=== PATIENT | male | born 1965 | race Caucasian/White ===

== ENCOUNTER 2020-06-21 23:21 | Inpatient (IN) | payer BC ==
[2020-06-22 00:58] LABS: Troponin I 0.014 ng/mL (< 0.028)
[2020-06-22] MEDS ORDERED: Acetaminophen 650 MG Suppository PR PRN (03:01)
[2020-06-22] MEDS ORDERED: Acetaminophen 325 MG TAB PO PRN (03:01)
[2020-06-22] MEDS ORDERED: Nitroglycerin 2% Ointment 1 INCH/1 GM Packet ONE (05:53)
[2020-06-22 06:01] LABS: #Basophils 0.1 thou/uL (0.0-0.2); #Eosinphils 0.2 thou/uL (0.0-0.7); #Lymphocytes 2.5 thou/uL (1.20-3.40); #Monocytes 0.8 thou/uL (0.11-0.59); #Neutrophils 5.3 thou/uL (1.40-6.50); %Basophils 0.7 % (0.0-1.0); %Eosinophils 2.3 % (0.0-10.0); %Lymphocytes 28.2 % (21.0-51.0); %Monocytes 9.4 % (0.0-10.0); %Neutrophils 59.4 % (42.0-75.0); Hemoglobin 14.2 g/dL (14.0-18.0); Mean Corpuscular HGB CONC 32.8 g/dL (32.0-36.0); Mean Corpuscular Hemoglobin 32.2 pg (27.0-31.0); Mean Corpuscular Volume 97.9 fL (78.0-98.0); Mean Platelet Volume 7.6 fL (7.4-10.4); Platelet Count 212 thou/uL (130-400); RBC Distribution Width 11.8 % (11.5-14.5); Red Blood Cell (RBC) Count 4.43 mill/uL (4.70-6.10)
[2020-06-22] MEDS: Sodium Chloride 0.9% 1,000 ML IV SCH ×2 (06:10→17:16)
[2020-06-22] MEDS: Nitroglycerin 2% Ointment 1 INCH/1 GM Packet TOP SCH ×3 (06:10→21:41)
[2020-06-22 06:22] LABS: Anion Gap 12 mmol/L (10-20); BUN (Urea Nitrogen) 12 mg/dL (8.4-25.7); Calc. Creatinine Clearance 0 mL/min (70-130); Carbon Dioxide 22 mmol/L (22-29); Chloride 108 mmol/L (98-107); Glucose 93 mg/dL (70-105); Potassium 4.1 mmol/L (3.5-5.1); Sodium 138 mmol/L (136-145)
[2020-06-22 08:35] LABS: SARS-CoV-2 PCR by NAA Not Detected (NotDetected)
[2020-06-22] MEDS ORDERED: Aspirin 325 MG TAB ONE (09:24)
[2020-06-22] MEDS: Aspirin 325 mg Enteric Coated Tablet PO SCH (09:27)
[2020-06-22] MEDS ORDERED: Communication Order-Pharmacy FS SCH (13:00)
[2020-06-23] MEDS ORDERED: Albumin 5% 500 ML ONE (06:21)
[2020-06-23] MEDS ORDERED: Fentanyl 250 MCG/5 ML VIAL ONE (06:43)
[2020-06-23] MEDS ORDERED: Midazolam HCl 5 mg/5 ml Vial ONE (06:44)
[2020-06-23] MEDS ORDERED: Dexmedetomidine 200 MCG/2 ML VIAL ONE (06:44)
[2020-06-23] MEDS ORDERED: Ondansetron ODT 4 MG TAB ONE (07:12)
[2020-06-23] MEDS ORDERED: Midazolam HCl 2 mg/2 ml Vial ONE (07:12)
[2020-06-23] MEDS ORDERED: CEFAZOLIN 2 GM in Premix Bag 1 BAG IVPB SCH (07:15)
[2020-06-23] MEDS ORDERED: Sodium Bicarb 50 MEQ/50 ML Abboject 8.4% SYRINGE ONE (07:20)
[2020-06-23] MEDS ORDERED: Mannitol 12.5 GM/50 ML ONE (07:20)
[2020-06-23] MEDS ORDERED: Lidocaine 1% PF 5 ML VIAL ONE (07:20)
[2020-06-23] MEDS ORDERED: Thrombin 5000 UNITS/5 ML VIAL ONE (07:20)
[2020-06-23] MEDS ORDERED: Potassium Chloride 60 MEQ/30 ML VIAL ONE (07:20)
[2020-06-23] MEDS ORDERED: Ondansetron PF 4 MG/2 ML Vial ONE (07:20)
[2020-06-23] MEDS ORDERED: Vecuronium 10 MG VIAL ONE (07:20)
[2020-06-23] MEDS ORDERED: Calcium Chloride 1 GM/10 ML Abboject SYRINGE ONE (07:20)
[2020-06-23] MEDS ORDERED: Heparin 30,000 units/30 ml VIAL ONE (07:20)
[2020-06-23] MEDS ORDERED: Glycopyrrolate 0.2 MG/ML 5 ML SYRINGE ONE (07:20)
[2020-06-23] MEDS ORDERED: Heparin 5,000 UNITS/ML VIAL ONE (07:20)
[2020-06-23] MEDS ORDERED: Protamine Sulfate 250 MG/25 ML VIAL ONE (07:20)
[2020-06-23] MEDS ORDERED: Papaverine 60 MG/2 ML VIAL ONE ×2 (07:20→08:12)
[2020-06-23] MEDS ORDERED: Cardioplegic Soln 1,000 ML BAG ONE (07:20)
[2020-06-23] MEDS ORDERED: Aminocaproic Acid 5 GM/20 ML VIAL ONE (07:20)
[2020-06-23] MEDS ORDERED: PROPOFOL 200 MG/20 ML VIAL ONE (07:20)
[2020-06-23] MEDS ORDERED: Nitroglycerin 50 MG/250 ML BOT ONE (07:20)
[2020-06-23] MEDS ORDERED: Norepinephrine 4 MG/4 ML VIAL ONE (07:20)
[2020-06-23] MEDS ORDERED: Lidocaine 2% PF 100 mg/5 ml Syringe ONE (07:20)
[2020-06-23] MEDS ORDERED: Magnesium Sulfate 1 GM/2 ML VIAL ONE (07:20)
[2020-06-23] MEDS ORDERED: PHENYLEPHRINE-NS 100 MCG/ML 10 ML SYRINGE ONE (08:44)
[2020-06-23] MEDS ORDERED: Mag-Al 1200 mg/1200 mg/30 ML UDCUP PO PRN (13:06)
[2020-06-23] MEDS ORDERED: Sodium Chloride 0.9% 1,000 ML IV SCH (13:06)
[2020-06-23] MEDS ORDERED: Bisacodyl 5 MG TAB PO PRN (13:06)
[2020-06-23] MEDS ORDERED: Nitroglycerin 50 MG/250 ML BOT 250 ML IVPB PRN (13:06)
[2020-06-23] MEDS ORDERED: Acetaminophen 325 MG TAB PO PRN (13:06)
[2020-06-23] MEDS ORDERED: Hetastarch 6% 500 ML 500 ML IVPB PRN (13:06)
[2020-06-23] MEDS ORDERED: niCARdipine 25 MG in Sodium Chloride 0.9% 250 ML 250 ML IVPB PRN (13:06)
[2020-06-23] MEDS ORDERED: Bisacodyl 10 MG SUPP PR PRN (13:06)
[2020-06-23] MEDS ORDERED: hydrALAZINE 20 MG/ML VIAL SLOW IVP PRN (13:06)
[2020-06-23] MEDS ORDERED: Morphine 2 MG/ML VIAL SLOW IVP PRN (13:06)
[2020-06-23] MEDS ORDERED: Aspirin 325 MG TAB PO SCH ×2 (13:06→21:30)
[2020-06-23] MEDS ORDERED: Ondansetron PF 4 MG/2 ML Vial IVP PRN (13:06)
[2020-06-23] MEDS ORDERED: Potassium Chloride 20 MEQ/100 ML PREMIX BAG IVPB PRN (13:06)
[2020-06-23] MEDS ORDERED: Guaifenesin DM 100-10/5 ML UDCUP PO PRN (13:06)
[2020-06-23] MEDS ORDERED: HYDROcodone/Acetaminophen 5/325 mg Tablet PO PRN (13:06)
[2020-06-23] MEDS ORDERED: Fentanyl 100 MCG/2 ML VIAL SLOW IVP PRN (13:06)
[2020-06-23] MEDS ORDERED: Post-Op Insulin Drip Protocol IVPB ONE (13:06)
[2020-06-23] MEDS ORDERED: Norepinephrine 8 MG/0.9% NS 250 ML IVPB PRN (13:06)
[2020-06-23 13:25] LABS: Hemoglobin 13.5 g/dL (14.0-18.0); Mean Corpuscular HGB CONC 33.9 g/dL (32.0-36.0); Mean Corpuscular Hemoglobin 33.2 pg (27.0-31.0); Mean Corpuscular Volume 97.9 fL (78.0-98.0); Mean Platelet Volume 7.6 fL (7.4-10.4); Platelet Count 140 thou/uL (130-400); RBC Distribution Width 11.6 % (11.5-14.5); Red Blood Cell (RBC) Count 4.07 mill/uL (4.70-6.10); White Blood Cell (WBC) Count 26.7 thou/uL (4.8-10.8)
[2020-06-23] MEDS ORDERED: Ketorolac Tromethamine 30 MG/ML VIAL ONE (13:25)
[2020-06-23] MEDS ORDERED: HUMULIN R 100 UNITS in Sodium Chloride 0.9% 100 ML IVPB SCH (13:30)
[2020-06-23] MEDS ORDERED: Dextrose 50% Abboject 50 ML SYRINGE SLOW IVP PRN (13:30)
[2020-06-23] MEDS ORDERED: Dextrose 5% in Water 1,000 ML IV PRN (13:30)
[2020-06-23] MEDS ORDERED: Insulin Regular 300 UNITS/3 ML VIAL SC PRN (13:30)
[2020-06-23 13:31] LABS: Hemoglobin A1c 5.5 % (4.0-6.0)
[2020-06-23 13:32] LABS: INR-International Normal Ratio 1.1; PTT 34.4 sec (22.9-36.1); Prothrombin Time 14.8 sec (12.0-14.7)
[2020-06-23 13:37] LABS: Base Excess (BEa) -4.2 mEq/L (-2.0 to +3.0); CO2 Tension 34.2 mmHg (35.0-45.0); Calcium, Ionized (arterial) 1.11 mmol/L (1.12-1.30); Carboxyhemoglobin (COHb) 0.4 gm% (0.0-3.0); Hemoglobin (Hb) 13.7 g/dL (14.0-18.0); Potassium - ABG Lab 3.83 mmol/L (3.70-5.30); pH, Arterial 7.39 (7.35-7.45)
[2020-06-23 13:38] LABS: O2 Tension (PaO2), arterial 52.7 mmHg (80.0-100.0); Puncture Site Arterial Line
[2020-06-23] MEDS: Famotidine/PF 20 mg/2ml Vial SLOW IVP SCH ×2 (13:42→20:33)
[2020-06-23] MEDS: Ketorolac Tromethamine 30 MG/ML VIAL IVP SCH ×2 (13:42→17:02)
[2020-06-23 13:46] LABS: Band 15 % (5-11); Lymphocytes 3 % (21-51); MDiff Complete? YES; Metamyelocyte 1 % (0-0); Monocytes 6 % (0-10); Neutrophil 75 % (42-75); Platelet Morphology Comment Appears Adequate; RBC Morphology Normal
[2020-06-23] MEDS: Sodium Chloride 0.9% 1,000 ML IV SCH (13:48)
[2020-06-23] MEDS: Nitroglycerin 2% Ointment 1 INCH/1 GM Packet TOP SCH (13:48)
[2020-06-23] MEDS: Aspirin 325 mg Enteric Coated Tablet PO SCH (13:48)
[2020-06-23 14:14] LABS: Anion Gap 12 mmol/L (10-20); BUN (Urea Nitrogen) 10 mg/dL (8.4-25.7); Calc. Creatinine Clearance 90 mL/min (70-130); Calcium 7.7 mg/dL (7.8-10.44); Carbon Dioxide 22 mmol/L (22-29); Chloride 111 mmol/L (98-107); Glucose 144 mg/dL (70-105); Potassium 4.3 mmol/L (3.5-5.1); Sodium 141 mmol/L (136-145)
[2020-06-23] MEDS ORDERED: FLU VACC QS2020-21(6MOS UP)/PF 60 MCG/0.5 ML SYRINGE IM ONE (15:00)
[2020-06-23 17:33] LABS: Hemoglobin 12.8 g/dL (14.0-18.0)
[2020-06-23 17:53] LABS: Potassium 3.8 mmol/L (3.5-5.1)
[2020-06-23 19:26] LABS: Actual Bicarbonate (HCO3a) 21.6 mEq/L (22-28); Base Excess (BEa) -1.8 mEq/L (-2.0 to +3.0); CO2 Tension 32.6 mmHg (35.0-45.0); Calcium, Ionized (arterial) 1.07 mmol/L (1.12-1.30); Carboxyhemoglobin (COHb) 0.3 gm% (0.0-3.0); Hemoglobin (Hb) 12.9 g/dL (14.0-18.0); O2 Tension (PaO2), arterial 73.7 mmHg (80.0-100.0); Potassium - ABG Lab 4.02 mmol/L (3.70-5.30); pH, Arterial 7.44 (7.35-7.45)
[2020-06-23 19:32] LABS: Puncture Site Arterial Line
[2020-06-23] MEDS: Fentanyl 100 MCG/2 ML VIAL SLOW IVP PRN ×2 (20:33→23:00)
[2020-06-23] MEDS: Docusate 100 MG CAP PO SCH (20:47)
[2020-06-23] MEDS: Atorvastatin Calcium 40 MG TAB PO SCH (20:47)
[2020-06-23] MEDS ORDERED: Lisinopril 20 MG TAB PO SCH (21:00)
[2020-06-23] MEDS ORDERED: Aspirin 300 MG Suppository PR SCH (21:30)
[2020-06-24] MEDS: HYDROcodone/Acetaminophen 5/325 mg Tablet PO PRN ×4 (00:24→21:31)
[2020-06-24] MEDS: Sodium Chloride 0.9% 1,000 ML IV SCH ×3 (00:33→20:04)
[2020-06-24] MEDS ORDERED: Aspirin 325 MG TAB PO SCH (00:45)
[2020-06-24] MEDS: Ketorolac Tromethamine 30 MG/ML VIAL IVP SCH ×2 (00:57→05:09)
[2020-06-24 04:21] LABS: #Lymphocytes 1.7 thou/uL (1.20-3.40); #Monocytes 1.3 thou/uL (0.11-0.59); #Neutrophils 10.7 thou/uL (1.40-6.50); %Basophils 0.3 % (0.0-1.0); %Eosinophils 0.1 % (0.0-10.0); %Lymphocytes 12.2 % (21.0-51.0); %Monocytes 9.3 % (0.0-10.0); %Neutrophils 78.1 % (42.0-75.0); Hemoglobin 11.9 g/dL (14.0-18.0); Mean Corpuscular HGB CONC 33.7 g/dL (32.0-36.0); Mean Corpuscular Hemoglobin 33.3 pg (27.0-31.0); Mean Corpuscular Volume 98.7 fL (78.0-98.0); Mean Platelet Volume 8.5 fL (7.4-10.4); Platelet Count 140 thou/uL (130-400); Red Blood Cell (RBC) Count 3.58 mill/uL (4.70-6.10); White Blood Cell (WBC) Count 13.8 thou/uL (4.8-10.8)
[2020-06-24 04:38] LABS: Anion Gap 12 mmol/L (10-20); BUN (Urea Nitrogen) 13 mg/dL (8.4-25.7); Calc. Creatinine Clearance 84 mL/min (70-130); Calcium 7.5 mg/dL (7.8-10.44); Carbon Dioxide 22 mmol/L (22-29); Cardiac Risk 4.6 (Less than 4.5); Chloride 112 mmol/L (98-107); Cholesterol 101 mg/dl (< 200 Desired); Glucose 112 mg/dL (70-105); HDL Cholesterol 22 mg/dL (>60 Neg Risk); LDL Cholesterol, Calculated 62 mg/dL; Potassium 4.5 mmol/L (3.5-5.1); Sodium 141 mmol/L (136-145); Triglycerides 83 mg/dL (Less than 150)
[2020-06-24] MEDS: Docusate 100 MG CAP PO SCH ×2 (09:06→20:24)
[2020-06-24] MEDS: Famotidine/PF 20 mg/2ml Vial SLOW IVP SCH ×2 (09:06→20:23)
[2020-06-24] MEDS: Fentanyl 100 MCG/2 ML VIAL SLOW IVP PRN ×4 (13:04→22:30)
[2020-06-24] MEDS ORDERED: Iopamidol 370 76% 100 ML VIAL ONE (14:09)
[2020-06-24] MEDS: Atorvastatin Calcium 40 MG TAB PO SCH (20:23)
[2020-06-25] MEDS: Fentanyl 100 MCG/2 ML VIAL SLOW IVP PRN (02:23)
[2020-06-25] MEDS: Sodium Chloride 0.9% 1,000 ML IV SCH ×2 (03:51→08:52)
[2020-06-25 04:40] LABS: #Eosinphils 0.1 thou/uL (0.0-0.7); #Lymphocytes 1.3 thou/uL (1.20-3.40); #Monocytes 0.8 thou/uL (0.11-0.59); #Neutrophils 7.1 thou/uL (1.40-6.50); %Basophils 0.3 % (0.0-1.0); %Eosinophils 0.7 % (0.0-10.0); %Lymphocytes 13.7 % (21.0-51.0); %Monocytes 9.1 % (0.0-10.0); %Neutrophils 76.2 % (42.0-75.0); Hemoglobin 10.8 g/dL (14.0-18.0); Mean Platelet Volume 8.2 fL (7.4-10.4); Platelet Count 141 thou/uL (130-400); RBC Distribution Width 11.8 % (11.5-14.5); Red Blood Cell (RBC) Count 3.26 mill/uL (4.70-6.10); White Blood Cell (WBC) Count 9.3 thou/uL (4.8-10.8)
[2020-06-25 05:02] LABS: Anion Gap 10 mmol/L (10-20); BUN (Urea Nitrogen) 13 mg/dL (8.4-25.7); Calc. Creatinine Clearance 102 mL/min (70-130); Calcium 7.4 mg/dL (7.8-10.44); Carbon Dioxide 24 mmol/L (22-29); Chloride 107 mmol/L (98-107); Glucose 99 mg/dL (70-105); Potassium 4.3 mmol/L (3.5-5.1); Sodium 137 mmol/L (136-145)
[2020-06-25] MEDS: Docusate 100 MG CAP PO SCH ×2 (08:42→20:37)
[2020-06-25] MEDS: Aspirin Chewable 81 MG TAB PO SCH (08:42)
[2020-06-25] MEDS: Famotidine/PF 20 mg/2ml Vial SLOW IVP SCH ×2 (08:42→20:37)
[2020-06-25 11:19] VITALS: BMI 23.7
[2020-06-25] MEDS ORDERED: Mineral Oil ENEMA PR PRN (12:27)
[2020-06-25] MEDS ORDERED: diphenhydrAMINE 25 MG CAP PO PRN (12:27)
[2020-06-25] MEDS ORDERED: Guaifenesin DM 100-10/5 ML UDCUP PO PRN (12:27)
[2020-06-25] MEDS ORDERED: Mag-Al 1200 mg/1200 mg/30 ML UDCUP PO PRN (12:27)
[2020-06-25] MEDS ORDERED: Bisacodyl 5 MG TAB PO PRN (12:27)
[2020-06-25] MEDS ORDERED: Nitroglycerin 0.4 MG TAB (25 Tab Bottle) SL PRN (12:27)
[2020-06-25] MEDS ORDERED: Zolpidem Tartrate 5 MG TAB PO PRN (12:27)
[2020-06-25] MEDS ORDERED: Furosemide 40 MG/4 ML VIAL SLOW IVP SCH (12:27)
[2020-06-25] MEDS ORDERED: Bisacodyl 10 MG SUPP PR PRN (12:27)
[2020-06-25] MEDS: HYDROcodone/Acetaminophen 5/325 mg Tablet PO PRN ×2 (13:33→20:37)
[2020-06-25] MEDS: Atorvastatin Calcium 40 MG TAB PO SCH (20:36)
[2020-06-26 04:40] LABS: #Eosinphils 0.2 thou/uL (0.0-0.7); #Lymphocytes 1.5 thou/uL (1.20-3.40); #Monocytes 1.1 thou/uL (0.11-0.59); #Neutrophils 8.6 thou/uL (1.40-6.50); %Basophils 0.2 % (0.0-1.0); %Eosinophils 1.4 % (0.0-10.0); %Lymphocytes 13.1 % (21.0-51.0); %Monocytes 9.9 % (0.0-10.0); %Neutrophils 75.4 % (42.0-75.0); Hemoglobin 11.2 g/dL (14.0-18.0); Mean Corpuscular HGB CONC 34.1 g/dL (32.0-36.0); Mean Corpuscular Hemoglobin 33.4 pg (27.0-31.0); Mean Corpuscular Volume 97.9 fL (78.0-98.0); Platelet Count 163 thou/uL (130-400); RBC Distribution Width 11.8 % (11.5-14.5); Red Blood Cell (RBC) Count 3.37 mill/uL (4.70-6.10); White Blood Cell (WBC) Count 11.4 thou/uL (4.8-10.8)
[2020-06-26 04:55] LABS: Anion Gap 12 mmol/L (10-20); BUN (Urea Nitrogen) 13 mg/dL (8.4-25.7); Calc. Creatinine Clearance 98 mL/min (70-130); Calcium 7.8 mg/dL (7.8-10.44); Carbon Dioxide 25 mmol/L (22-29); Chloride 103 mmol/L (98-107); Glucose 84 mg/dL (70-105); Potassium 3.6 mmol/L (3.5-5.1); Sodium 136 mmol/L (136-145)
[2020-06-26] MEDS: HYDROcodone/Acetaminophen 5/325 mg Tablet PO PRN ×2 (05:53→18:08)
[2020-06-26] MEDS ORDERED: Insulin Regular 300 UNITS/3 ML VIAL SC PRN (08:00)
[2020-06-26] MEDS: Aspirin Chewable 81 MG TAB PO SCH (08:59)
[2020-06-26] MEDS: Docusate 100 MG CAP PO SCH ×2 (08:59→21:11)
[2020-06-26] MEDS: Famotidine/PF 20 mg/2ml Vial SLOW IVP SCH ×2 (08:59→21:11)
[2020-06-26] MEDS: Carvedilol 3.125 MG TAB PO SCH (18:07)
[2020-06-26] MEDS: Atorvastatin Calcium 40 MG TAB PO SCH (21:11)
[2020-06-26] MEDS: levETIRAcetam 500 MG TAB PO SCH (21:11)
[2020-06-27] MEDS: HYDROcodone/Acetaminophen 5/325 mg Tablet PO PRN ×2 (03:28→17:12)
[2020-06-27 05:40] LABS: #Basophils 0.1 thou/uL (0.0-0.2); #Eosinphils 0.2 thou/uL (0.0-0.7); #Lymphocytes 1.6 thou/uL (1.20-3.40); #Monocytes 1.2 thou/uL (0.11-0.59); #Neutrophils 7.2 thou/uL (1.40-6.50); %Basophils 0.5 % (0.0-1.0); %Eosinophils 2.1 % (0.0-10.0); %Lymphocytes 15.6 % (21.0-51.0); %Monocytes 11.7 % (0.0-10.0); %Neutrophils 70.1 % (42.0-75.0); Hemoglobin 11.5 g/dL (14.0-18.0); Mean Corpuscular HGB CONC 34.3 g/dL (32.0-36.0); Mean Corpuscular Hemoglobin 33.5 pg (27.0-31.0); Mean Corpuscular Volume 97.7 fL (78.0-98.0); Mean Platelet Volume 7.7 fL (7.4-10.4); Platelet Count 211 thou/uL (130-400); RBC Distribution Width 11.8 % (11.5-14.5); Red Blood Cell (RBC) Count 3.43 mill/uL (4.70-6.10); White Blood Cell (WBC) Count 10.2 thou/uL (4.8-10.8)
[2020-06-27 06:24] LABS: Anion Gap 11 mmol/L (10-20); BUN (Urea Nitrogen) 12 mg/dL (8.4-25.7); Calc. Creatinine Clearance 92 mL/min (70-130); Carbon Dioxide 25 mmol/L (22-29); Chloride 104 mmol/L (98-107); Glucose 85 mg/dL (70-105); Potassium 3.4 mmol/L (3.5-5.1); Sodium 137 mmol/L (136-145)
[2020-06-27] MEDS: Carvedilol 3.125 MG TAB PO SCH ×2 (09:06→17:07)
[2020-06-27] MEDS: Docusate 100 MG CAP PO SCH ×2 (09:06→21:56)
[2020-06-27] MEDS: Aspirin Chewable 81 MG TAB PO SCH (09:06)
[2020-06-27] MEDS: levETIRAcetam 500 MG TAB PO SCH ×2 (09:06→21:56)
[2020-06-27] MEDS: Lisinopril 5 MG TAB PO SCH (09:06)
[2020-06-27] MEDS: Famotidine/PF 20 mg/2ml Vial SLOW IVP SCH (09:07)
[2020-06-27] MEDS: Nicotine 14 MG PATCH TOP SCH (10:25)
[2020-06-27] MEDS: Atorvastatin Calcium 40 MG TAB PO SCH (21:56)
[2020-06-27] MEDS: Famotidine 20 MG TAB PO SCH (21:56)
[2020-06-28] MEDS: HYDROcodone/Acetaminophen 5/325 mg Tablet PO PRN ×2 (03:11→14:54)
[2020-06-28] MEDS: levETIRAcetam 500 MG TAB PO SCH (10:21)
[2020-06-28] MEDS: Docusate 100 MG CAP PO SCH (10:22)
[2020-06-28] MEDS: Lisinopril 5 MG TAB PO SCH (10:22)
[2020-06-28] MEDS: Famotidine 20 MG TAB PO SCH (10:22)
[2020-06-28] MEDS: Aspirin Chewable 81 MG TAB PO SCH (10:22)
[2020-06-28] MEDS: Carvedilol 3.125 MG TAB PO SCH (10:23)
[2020-06-28] MEDS: Nicotine 14 MG PATCH TOP SCH ×2 (10:23→10:33)
[2020-06-28 11:57] VITALS: BP 116/67; TEMP 97.8
[2020-07-09 13:25] LABS: Actual Bicarbonate (HCO3a) 24.6 mEq/L (22-28); Analyzer IN Cardio OR; CO2 Tension 44.1 mmHg (35.0-45.0); Calcium, Ionized (arterial) 1.09 mmol/L (1.12-1.30); Carboxyhemoglobin (COHb) 0.3 gm% (0.0-3.0); Hemoglobin (Hb) 14.6 g/dL (14.0-18.0); O2 Tension (PaO2), arterial 349.1 mmHg (80.0-100.0); Potassium - ABG Lab 3.74 mmol/L (3.70-5.30); pH, Arterial 7.36 (7.35-7.45)
[2020-07-09 13:26] LABS: Actual Bicarbonate (HCO3a) 20.3 mEq/L (22-28); Analyzer IN Cardio OR; Base Excess (BEa) -4.4 mEq/L (-2.0 to +3.0); CO2 Tension 36.4 mmHg (35.0-45.0); Calcium, Ionized (arterial) 1.27 mmol/L (1.12-1.30); Carboxyhemoglobin (COHb) 0.3 gm% (0.0-3.0); Hemoglobin (Hb) 12.5 g/dL (14.0-18.0); O2 Tension (PaO2), arterial 352.8 mmHg (80.0-100.0); Potassium - ABG Lab 5.46 mmol/L (3.70-5.30); pH, Arterial 7.37 (7.35-7.45)
[2020-07-09 13:26] LABS: Actual Bicarbonate (HCO3a) 22.2 mEq/L (22-28); Analyzer IN Cardio OR; Base Excess (BEa) -2.3 mEq/L (-2.0 to +3.0); CO2 Tension 37.2 mmHg (35.0-45.0); Calcium, Ionized (arterial) 1.08 mmol/L (1.12-1.30); Carboxyhemoglobin (COHb) 0.5 gm% (0.0-3.0); Hemoglobin (Hb) 14.2 g/dL (14.0-18.0); pH, Arterial 7.39 (7.35-7.45)
[2020-07-09 13:27] LABS: Actual Bicarbonate (HCO3a) 25.2 mEq/L (22-28); Analyzer IN Cardio OR; Base Excess (BEa) 0.7 mEq/L (-2.0 to +3.0); Calcium, Ionized (arterial) 0.99 mmol/L (1.12-1.30); Carboxyhemoglobin (COHb) 0.3 gm% (0.0-3.0); Hemoglobin (Hb) 11.1 g/dL (14.0-18.0); O2 Tension (PaO2), arterial 291.6 mmHg (80.0-100.0); Potassium - ABG Lab 4.82 mmol/L (3.70-5.30); pH, Arterial 7.42 (7.35-7.45)
[2020-07-09 13:27] LABS: Actual Bicarbonate (HCO3a) 24.5 mEq/L (22-28); Analyzer IN Cardio OR; Base Excess (BEa) 0.1 mEq/L (-2.0 to +3.0); CO2 Tension 38.5 mmHg (35.0-45.0); Calcium, Ionized (arterial) 0.86 mmol/L (1.12-1.30); Carboxyhemoglobin (COHb) 0.3 gm% (0.0-3.0); Hemoglobin (Hb) 11.4 g/dL (14.0-18.0); O2 Tension (PaO2), arterial 357.3 mmHg (80.0-100.0); pH, Arterial 7.42 (7.35-7.45)
[2020-07-09 13:28] LABS: Actual Bicarbonate (HCO3a) 25.5 mEq/L (22-28); Analyzer IN Cardio OR; Base Excess (BEa) 0.7 mEq/L (-2.0 to +3.0); CO2 Tension 41.6 mmHg (35.0-45.0); Calcium, Ionized (arterial) 1.15 mmol/L (1.12-1.30); Carboxyhemoglobin (COHb) 0.1 gm% (0.0-3.0); Hemoglobin (Hb) 10.8 g/dL (14.0-18.0); O2 Tension (PaO2), arterial 202.2 mmHg (80.0-100.0); pH, Arterial 7.41 (7.35-7.45)
[2020-07-09 13:28] LABS: Actual Bicarbonate (HCO3a) 23.1 mEq/L (22-28); Analyzer IN Cardio OR; CO2 Tension 40.9 mmHg (35.0-45.0); Calcium, Ionized (arterial) 1.12 mmol/L (1.12-1.30); Carboxyhemoglobin (COHb) 0.5 gm% (0.0-3.0); Hemoglobin (Hb) 12.3 g/dL (14.0-18.0); O2 Tension (PaO2), arterial 78.1 mmHg (80.0-100.0); Potassium - ABG Lab 3.73 mmol/L (3.70-5.30); pH, Arterial 7.37 (7.35-7.45)
[2020-07-09 13:28] LABS: Actual Bicarbonate (HCO3a) 25.2 mEq/L (22-28); Analyzer IN Cardio OR; Base Excess (BEa) 0.1 mEq/L (-2.0 to +3.0); CO2 Tension 42.8 mmHg (35.0-45.0); Calcium, Ionized (arterial) 1.33 mmol/L (1.12-1.30); Carboxyhemoglobin (COHb) 0.3 gm% (0.0-3.0); Hemoglobin (Hb) 10.6 g/dL (14.0-18.0); O2 Tension (PaO2), arterial 223.5 mmHg (80.0-100.0); Potassium - ABG Lab 4.45 mmol/L (3.70-5.30); pH, Arterial 7.39 (7.35-7.45)
[2020-07-09 13:29] LABS: Puncture Site Arterial Line
[2020-07-09 13:29] LABS: Puncture Site Arterial Line
[2020-07-09 13:30] LABS: Puncture Site Arterial Line
[2020-07-09 13:30] LABS: Puncture Site Arterial Line
[2020-07-09 13:31] LABS: Puncture Site Arterial Line
[2020-07-09 13:31] LABS: Puncture Site Arterial Line
[2020-07-09 13:32] LABS: Puncture Site Arterial Line
[2020-07-09 13:33] LABS: Puncture Site Arterial Line
== END 2020-06-28 15:30 | disposition home or self-care (01) | DRG 235 ==
LOC: ERS 23:21 → ERHOLD 06-22 01:46 → 2SE 06-22 13:28 → CCU 06-23 08:04 → 2NO 06-25 10:25
PROVIDERS: ADMIT Internal Medicine; ATTEND Internal Medicine
PROC: 02100Z9 Bypass Coronary Artery, One Artery from Left Internal Mammary, Open Approach (ICD-10-PCS; principal; 2020-06-23)
PROC: 021009W Bypass Coronary Artery, One Artery from Aorta with Autologous Venous Tissue, Open Approach (ICD-10-PCS; 2020-06-23)
PROC: 06BQ0ZZ Excision of Left Saphenous Vein, Open Approach (ICD-10-PCS; 2020-06-23)
PROC: 02100AW Bypass Coronary Artery, One Artery from Aorta with Autologous Arterial Tissue, Open Approach (ICD-10-PCS; 2020-06-23)
PROC: 03BC0ZZ Excision of Left Radial Artery, Open Approach (ICD-10-PCS; 2020-06-23)
PROC: 5A1221Z Performance of Cardiac Output, Continuous (ICD-10-PCS; 2020-06-23)
DX: I25.110 Atherosclerotic heart disease of native coronary artery with unstable angina pectoris (principal); I63.9 Cerebral infarction, unspecified; R47.01 Aphasia; G81.91 Hemiplegia, unspecified affecting right dominant side; F17.210 Nicotine dependence, cigarettes, uncomplicated; E78.5 Hyperlipidemia, unspecified; I10 Essential (primary) hypertension; Z20.822 Contact with and (suspected) exposure to COVID-19; E87.6 Hypokalemia; Z88.1 Allergy status to other antibiotic agents; Z98.1 Arthrodesis status; Z82.49 Family history of ischemic heart disease and other diseases of the circulatory system; Z71.6 Tobacco abuse counseling
CPT/HCPCS: 36415; 36416; 36430; 70450; 70496; 70498; 71045; 80048; 80061; 82805; 83036; 83735; 83880; 84484; 85025; 85610; 85730; 86850; 86900; 86901; 87635; 93005; 93010; 93306; 95712; 95819; 95957; 97139; 99285; J0690; J1642; J1644; J1885; J1940; J2001; J2150; J2250; J2405; J2440; J2704; J2720; J3010; J3370; J3475; J3480; P9045; Q0162; Q9967; S0017; S0028; U0003; U0005

== ENCOUNTER 2020-06-30 12:54 | Observation (INO) | payer BC ==
[2020-06-30 14:30] LABS: ALT (SGPT) 30 U/L (8-55); AST (SGOT) 30 U/L (5-34); Albumin 3.6 g/dL (3.5-5.0); Alkaline Phosphatase 151 U/L (40-110); Anion Gap 13 mmol/L (10-20); BUN (Urea Nitrogen) 11 mg/dL (8.4-25.7); Bilirubin, Total 0.5 mg/dL (0.2-1.2); Calc. Creatinine Clearance 0 mL/min (70-130); Calcium 8.6 mg/dL (7.8-10.44); Carbon Dioxide 23 mmol/L (22-29); Chloride 106 mmol/L (98-107); Glucose 84 mg/dL (70-105); Potassium 4.1 mmol/L (3.5-5.1); Protein, Total 6.6 g/dL (6.0-8.3); Sodium 138 mmol/L (136-145)
[2020-06-30 14:55] LABS: #Basophils 0.1 thou/uL (0.0-0.2); #Eosinphils 0.2 thou/uL (0.0-0.7); #Lymphocytes 2.5 thou/uL (1.20-3.40); #Monocytes 1.2 thou/uL (0.11-0.59); #Neutrophils 6.9 thou/uL (1.40-6.50); %Basophils 0.6 % (0.0-1.0); %Eosinophils 2.1 % (0.0-10.0); %Lymphocytes 22.8 % (21.0-51.0); %Monocytes 11.3 % (0.0-10.0); %Neutrophils 63.2 % (42.0-75.0); Hemoglobin 12.8 g/dL (14.0-18.0); Mean Corpuscular HGB CONC 33.2 g/dL (32.0-36.0); Mean Corpuscular Hemoglobin 33.1 pg (27.0-31.0); Mean Corpuscular Volume 99.6 fL (78.0-98.0); Mean Platelet Volume 6.8 fL (7.4-10.4); Platelet Count 355 thou/uL (130-400); RBC Distribution Width 12.4 % (11.5-14.5); Red Blood Cell (RBC) Count 3.86 mill/uL (4.70-6.10); White Blood Cell (WBC) Count 10.9 thou/uL (4.8-10.8)
[2020-06-30] MEDS ORDERED: Iopamidol-370 76% 500 ML 1 ML ONE (14:56)
[2020-06-30] MEDS ORDERED: Aspirin 325 MG TAB ONE (16:10)
[2020-06-30 16:12] LABS: CKMB 3.9 ng/mL (0-6.6)
[2020-06-30] MEDS ORDERED: Acetaminophen 325 MG TAB PO PRN (18:36)
[2020-06-30 19:33] LABS: Troponin I 4.681 ng/mL (< 0.028)
[2020-06-30 19:55] VITALS: BMI 21.5
[2020-06-30] MEDS ORDERED: Enoxaparin Sodium 60 MG/0.6 ML SYRINGE SC SCH (20:00)
[2020-06-30] MEDS ORDERED: Nicotine 14 MG PATCH TD SCH (21:00)
[2020-06-30] MEDS: Famotidine 20 MG TAB PO SCH (21:16)
[2020-07-01] MEDS ORDERED: HYDROcodone/Acetaminophen 5/325 mg Tablet PO SCH (01:15)
[2020-07-01 02:19] LABS: Critical Call Chem Troponin I RESULT DECREASING; Troponin I 4.502 ng/mL (< 0.028)
[2020-07-01 02:34] LABS: SARS-CoV-2 PCR by NAA Not Detected (NotDetected)
[2020-07-01 05:05] LABS: #Basophils 0.1 thou/uL (0.0-0.2); #Eosinphils 0.2 thou/uL (0.0-0.7); #Lymphocytes 2.3 thou/uL (1.20-3.40); #Neutrophils 7.1 thou/uL (1.40-6.50); %Basophils 0.6 % (0.0-1.0); %Eosinophils 2.1 % (0.0-10.0); %Lymphocytes 21.2 % (21.0-51.0); %Monocytes 9.2 % (0.0-10.0); Hemoglobin 11.7 g/dL (14.0-18.0); Mean Corpuscular HGB CONC 34.3 g/dL (32.0-36.0); Mean Corpuscular Hemoglobin 33.7 pg (27.0-31.0); Mean Corpuscular Volume 98.2 fL (78.0-98.0); Mean Platelet Volume 6.9 fL (7.4-10.4); Platelet Count 370 thou/uL (130-400); RBC Distribution Width 12.3 % (11.5-14.5); Red Blood Cell (RBC) Count 3.47 mill/uL (4.70-6.10); White Blood Cell (WBC) Count 10.6 thou/uL (4.8-10.8)
[2020-07-01 05:28] LABS: Anion Gap 10 mmol/L (10-20); BUN (Urea Nitrogen) 11 mg/dL (8.4-25.7); Calc. Creatinine Clearance 87 mL/min (70-130); Calcium 8.4 mg/dL (7.8-10.44); Carbon Dioxide 26 mmol/L (22-29); Chloride 106 mmol/L (98-107); Glucose 80 mg/dL (70-105); Potassium 3.7 mmol/L (3.5-5.1); Sodium 138 mmol/L (136-145)
[2020-07-01] MEDS ORDERED: HYDROcodone/Acetaminophen 5/325 mg Tablet PO PRN (07:20)
[2020-07-01] MEDS: Famotidine 20 MG TAB PO SCH (07:55)
[2020-07-01] MEDS ORDERED: Carvedilol 3.125 MG TAB PO SCH (08:00)
[2020-07-01] MEDS ORDERED: Lisinopril 5 MG TAB PO SCH (09:00)
[2020-07-01] MEDS ORDERED: Aspirin 325 mg Enteric Coated Tablet PO SCH (09:00)
[2020-07-01] MEDS ORDERED: Aspirin Chewable 81 MG TAB PO SCH (09:00)
[2020-07-01] MEDS ORDERED: levETIRAcetam 500 MG TAB PO SCH (09:00)
[2020-07-01] MEDS ORDERED: Communication Order-Pharmacy FS SCH (12:30)
[2020-07-01 12:34] VITALS: TEMP 97.9
[2020-07-01] MEDS ORDERED: Lidocaine 1% (PF) 30 ML VIAL ONE (12:35)
[2020-07-01] MEDS ORDERED: Iopamidol 370 76% 100 ML VIAL ONE (12:46)
[2020-07-01] MEDS ORDERED: Sodium Chloride 0.9% 500 ML IV SCH (13:00)
[2020-07-01] MEDS ORDERED: Fentanyl 100 MCG/2 ML VIAL ONE (13:08)
[2020-07-01] MEDS ORDERED: Midazolam HCl 2 mg/2 ml Vial ONE (13:08)
[2020-07-01] MEDS ORDERED: Nitroglycerin 0.4 MG TAB (25 Tab Bottle) SL PRN (13:40)
[2020-07-01] MEDS ORDERED: Sodium Chloride 0.9% 200 ML IV PRN (13:40)
[2020-07-01] MEDS ORDERED: Acetaminophen/Codeine 30-300mg Tablet PO PRN (13:40)
[2020-07-01] MEDS ORDERED: Clopidogrel Bisulfate 300 MG TAB PO SCH (13:45)
[2020-07-01 17:19] VITALS: BP 136/75
[2020-07-01] MEDS ORDERED: Atorvastatin Calcium 40 MG TAB PO SCH (21:00)
[2020-07-02] MEDS ORDERED: Clopidogrel Bisulfate 75 MG TAB PO SCH (09:00)
== END 2020-07-01 18:45 | disposition home or self-care (01) ==
LOC: ERS 12:54 → 2SW 16:01
PROVIDERS: ADMIT Internal Medicine; ATTEND Internal Medicine
PROC: 4A023N7 Measurement of Cardiac Sampling and Pressure, Left Heart, Percutaneous Approach (ICD-10-PCS; principal; 2020-07-01)
PROC: B2111ZZ Fluoroscopy of Multiple Coronary Arteries using Low Osmolar Contrast (ICD-10-PCS; 2020-07-01)
PROC: B2131ZZ Fluoroscopy of Multiple Coronary Artery Bypass Grafts using Low Osmolar Contrast (ICD-10-PCS; 2020-07-01)
PROC: B2181ZZ Fluoroscopy of Left Internal Mammary Bypass Graft using Low Osmolar Contrast (ICD-10-PCS; 2020-07-01)
DX: I21.4 Non-ST elevation (NSTEMI) myocardial infarction (principal); I25.10 Atherosclerotic heart disease of native coronary artery without angina pectoris; I10 Essential (primary) hypertension; E78.2 Mixed hyperlipidemia; I69.351 Hemiplegia and hemiparesis following cerebral infarction affecting right dominant side; I69.320 Aphasia following cerebral infarction; E78.00 Pure hypercholesterolemia, unspecified; J90 Pleural effusion, not elsewhere classified; R91.1 Solitary pulmonary nodule; R56.9 Unspecified convulsions; Z87.891 Personal history of nicotine dependence; Z79.82 Long term (current) use of aspirin; Z79.899 Other long term (current) drug therapy; Z88.1 Allergy status to other antibiotic agents; Z95.1 Presence of aortocoronary bypass graft; Z20.822 Contact with and (suspected) exposure to COVID-19
CPT/HCPCS: 36415; 71045; 71275; 76942; 80048; 80053; 82553; 84484; 85025; 85379; 87635; 93005; 93306; 93459; 94760; 96372; 99152; G0378; J1650; J2001; J2250; J3010; Q9967; U0003; U0005

== ENCOUNTER 2020-07-02 01:34 | Inpatient (IN) | payer BC ==
[2020-07-02 02:58] LABS: Critical Call Chem Troponin I RESULT DECREASING
[2020-07-02 04:23] VITALS: BMI 22.7
[2020-07-02] MEDS ORDERED: HYDROcodone/Acetaminophen 5/325 mg Tablet PO PRN ×2 (04:35→07:49)
[2020-07-02] MEDS ORDERED: Acetaminophen 325 MG TAB PO PRN (04:35)
[2020-07-02] MEDS ORDERED: Nitroglycerin 0.4 MG TAB (25 Tab Bottle) SL PRN (04:35)
[2020-07-02 06:10] LABS: Critical Call Chem Troponin I RESULT DECREASING; Troponin I 1.156 ng/mL (< 0.028)
[2020-07-02 06:38] LABS: #Basophils 0.1 thou/uL (0.0-0.2); #Eosinphils 0.2 thou/uL (0.0-0.7); #Lymphocytes 1.8 thou/uL (1.20-3.40); #Monocytes 1.2 thou/uL (0.11-0.59); %Basophils 0.6 % (0.0-1.0); %Eosinophils 1.6 % (0.0-10.0); %Lymphocytes 13.4 % (21.0-51.0); %Monocytes 8.8 % (0.0-10.0); %Neutrophils 75.6 % (42.0-75.0); Hemoglobin 12.9 g/dL (14.0-18.0); Mean Corpuscular HGB CONC 33.8 g/dL (32.0-36.0); Mean Corpuscular Hemoglobin 33.3 pg (27.0-31.0); Mean Corpuscular Volume 98.6 fL (78.0-98.0); Mean Platelet Volume 7.1 fL (7.4-10.4); Platelet Count 435 thou/uL (130-400); RBC Distribution Width 12.3 % (11.5-14.5); Red Blood Cell (RBC) Count 3.86 mill/uL (4.70-6.10); White Blood Cell (WBC) Count 13.3 thou/uL (4.8-10.8)
[2020-07-02 06:50] LABS: ALT (SGPT) 26 U/L (8-55); AST (SGOT) 30 U/L (5-34); Albumin 3.5 g/dL (3.5-5.0); Alkaline Phosphatase 163 U/L (40-110); Anion Gap 16 mmol/L (10-20); BUN (Urea Nitrogen) 11 mg/dL (8.4-25.7); Bilirubin, Total 0.7 mg/dL (0.2-1.2); Calc. Creatinine Clearance 89 mL/min (70-130); Calcium 8.8 mg/dL (7.8-10.44); Carbon Dioxide 20 mmol/L (22-29); Chloride 106 mmol/L (98-107); Globulin 3.2 g/dL (2.4-3.5); Glucose 80 mg/dL (70-105); Potassium 3.8 mmol/L (3.5-5.1); Protein, Total 6.7 g/dL (6.0-8.3); Sodium 138 mmol/L (136-145)
[2020-07-02] MEDS: Aspirin Chewable 81 MG TAB PO SCH (08:05)
[2020-07-02] MEDS ORDERED: Enoxaparin Sodium 60 MG/0.6 ML SYRINGE SC SCH (09:00)
[2020-07-02] MEDS ORDERED: Aspirin Chewable 81 MG TAB PO SCH (09:00)
[2020-07-02] MEDS: levETIRAcetam 500 MG TAB PO SCH ×2 (09:25→21:40)
[2020-07-02] MEDS: Carvedilol 3.125 MG TAB PO SCH ×2 (09:25→17:19)
[2020-07-02] MEDS: Lisinopril 5 MG TAB PO SCH (09:25)
[2020-07-02] MEDS: Clopidogrel Bisulfate 75 MG TAB PO SCH (09:25)
[2020-07-02] MEDS: Atorvastatin Calcium 40 MG TAB PO SCH (21:40)
[2020-07-02] MEDS: Enoxaparin Sodium 60 MG/0.6 ML SYRINGE SC SCH (21:40)
[2020-07-03 04:58] LABS: #Basophils 0.1 thou/uL (0.0-0.2); #Eosinphils 0.3 thou/uL (0.0-0.7); #Monocytes 1.3 thou/uL (0.11-0.59); #Neutrophils 9.2 thou/uL (1.40-6.50); %Basophils 0.7 % (0.0-1.0); %Lymphocytes 15.7 % (21.0-51.0); %Neutrophils 71.7 % (42.0-75.0); Hemoglobin 13.1 g/dL (14.0-18.0); Mean Corpuscular HGB CONC 32.7 g/dL (32.0-36.0); Mean Corpuscular Volume 97.8 fL (78.0-98.0); Mean Platelet Volume 6.8 fL (7.4-10.4); Platelet Count 469 thou/uL (130-400); RBC Distribution Width 12.4 % (11.5-14.5); Red Blood Cell (RBC) Count 4.09 mill/uL (4.70-6.10); White Blood Cell (WBC) Count 12.8 thou/uL (4.8-10.8)
[2020-07-03 05:15] LABS: Anion Gap 16 mmol/L (10-20); BUN (Urea Nitrogen) 13 mg/dL (8.4-25.7); Calc. Creatinine Clearance 82 mL/min (70-130); Calcium 8.9 mg/dL (7.8-10.44); Carbon Dioxide 20 mmol/L (22-29); Chloride 104 mmol/L (98-107); Glucose 88 mg/dL (70-105); Sodium 136 mmol/L (136-145)
[2020-07-03] MEDS: Carvedilol 3.125 MG TAB PO SCH ×2 (08:26→17:14)
[2020-07-03] MEDS: Lisinopril 5 MG TAB PO SCH (08:26)
[2020-07-03] MEDS: levETIRAcetam 500 MG TAB PO SCH ×2 (08:26→20:30)
[2020-07-03] MEDS: Enoxaparin Sodium 60 MG/0.6 ML SYRINGE SC SCH ×2 (08:26→20:30)
[2020-07-03] MEDS: Clopidogrel Bisulfate 75 MG TAB PO SCH (08:27)
[2020-07-03] MEDS: Aspirin Chewable 81 MG TAB PO SCH (08:27)
[2020-07-03] MEDS: Atorvastatin Calcium 40 MG TAB PO SCH (20:30)
[2020-07-04 08:37] VITALS: BP 96/62; TEMP 98.1
[2020-07-04] MEDS: Aspirin Chewable 81 MG TAB PO SCH (08:37)
[2020-07-04] MEDS: levETIRAcetam 500 MG TAB PO SCH (08:37)
[2020-07-04] MEDS: Clopidogrel Bisulfate 75 MG TAB PO SCH (08:38)
[2020-07-04] MEDS: Carvedilol 3.125 MG TAB PO SCH (08:38)
[2020-07-04] MEDS: Enoxaparin Sodium 60 MG/0.6 ML SYRINGE SC SCH (08:38)
[2020-07-04] MEDS: Lisinopril 5 MG TAB PO SCH (08:38)
== END 2020-07-04 10:50 | disposition home or self-care (01) | DRG 282 ==
LOC: ERS 01:34 → 2SE 03:04 → OBSVTOIN 16:01
PROVIDERS: ADMIT Student in an Organized Health Care Education/Training Program; ATTEND Internal Medicine
DX: I21.4 Non-ST elevation (NSTEMI) myocardial infarction (principal); I25.110 Atherosclerotic heart disease of native coronary artery with unstable angina pectoris; I10 Essential (primary) hypertension; E78.5 Hyperlipidemia, unspecified; F17.210 Nicotine dependence, cigarettes, uncomplicated; E78.2 Mixed hyperlipidemia; Z95.1 Presence of aortocoronary bypass graft; I69.320 Aphasia following cerebral infarction; Z88.1 Allergy status to other antibiotic agents; Z79.899 Other long term (current) drug therapy; Z79.82 Long term (current) use of aspirin; Z98.1 Arthrodesis status; Z95.5 Presence of coronary angioplasty implant and graft; Z79.02 Long term (current) use of antithrombotics/antiplatelets
CPT/HCPCS: 36415; 36416; 80048; 80053; 84484; 85025; J1650

== ENCOUNTER 2020-07-06 18:05 | Inpatient (IN) | payer BC ==
[2020-07-06 18:40] LABS: #Eosinphils 0.3 thou/uL (0.0-0.7); #Lymphocytes 1.4 thou/uL (1.20-3.40); #Monocytes 0.8 thou/uL (0.11-0.59); #Neutrophils 6.3 thou/uL (1.40-6.50); %Basophils 0.5 % (0.0-1.0); %Eosinophils 3.3 % (0.0-10.0); %Lymphocytes 16.1 % (21.0-51.0); %Monocytes 8.8 % (0.0-10.0); %Neutrophils 71.4 % (42.0-75.0); Hemoglobin 12.6 g/dL (14.0-18.0); Mean Corpuscular HGB CONC 32.9 g/dL (32.0-36.0); Mean Corpuscular Hemoglobin 32.4 pg (27.0-31.0); Mean Corpuscular Volume 98.4 fL (78.0-98.0); Mean Platelet Volume 7.1 fL (7.4-10.4); Platelet Count 465 thou/uL (130-400); RBC Distribution Width 12.1 % (11.5-14.5); Red Blood Cell (RBC) Count 3.89 mill/uL (4.70-6.10); White Blood Cell (WBC) Count 8.8 thou/uL (4.8-10.8)
[2020-07-06 19:09] LABS: ALT (SGPT) 36 U/L (8-55); AST (SGOT) 39 U/L (5-34); Albumin 3.4 g/dL (3.5-5.0); Alkaline Phosphatase 183 U/L (40-110); Anion Gap 15 mmol/L (10-20); BUN (Urea Nitrogen) 13 mg/dL (8.4-25.7); Bilirubin, Total 0.4 mg/dL (0.2-1.2); Calc. Creatinine Clearance 0 mL/min (70-130); Calcium 8.4 mg/dL (7.8-10.44); Carbon Dioxide 19 mmol/L (22-29); Chloride 105 mmol/L (98-107); Globulin 2.8 g/dL (2.4-3.5); Glucose 102 mg/dL (70-105); Lipase 22 U/L (8-78); Protein, Total 6.2 g/dL (6.0-8.3); Sodium 135 mmol/L (136-145)
[2020-07-06] MEDS ORDERED: Aspirin Chewable 81 MG TAB ONE (19:14)
[2020-07-06] MEDS ORDERED: Enoxaparin Sodium 80 MG/0.8 ML SYRINGE ONE (19:15)
[2020-07-06 19:27] LABS: CKMB 0.7 ng/mL (0-6.6)
[2020-07-06] MEDS ORDERED: Acetaminophen 325 MG TAB PO PRN (22:58)
[2020-07-06] MEDS ORDERED: Acetaminophen 650 MG Suppository PR PRN (22:58)
[2020-07-06 23:08] LABS: Troponin I 0.255 ng/mL (< 0.028)
[2020-07-06] MEDS ORDERED: Nitroglycerin 0.4 MG TAB (25 Tab Bottle) SL PRN (23:31)
[2020-07-07 02:38] LABS: CKMB 13.6 ng/mL (0-6.6)
[2020-07-07 04:56] LABS: #Basophils 0.1 thou/uL (0.0-0.2); #Eosinphils 0.3 thou/uL (0.0-0.7); #Lymphocytes 2.2 thou/uL (1.20-3.40); #Monocytes 0.7 thou/uL (0.11-0.59); #Neutrophils 4.3 thou/uL (1.40-6.50); %Basophils 1.1 % (0.0-1.0); %Eosinophils 3.7 % (0.0-10.0); %Monocytes 9.4 % (0.0-10.0); %Neutrophils 56.9 % (42.0-75.0); Hemoglobin 12.7 g/dL (14.0-18.0); Mean Corpuscular HGB CONC 32.3 g/dL (32.0-36.0); Mean Corpuscular Hemoglobin 31.7 pg (27.0-31.0); Mean Corpuscular Volume 98.1 fL (78.0-98.0); Mean Platelet Volume 7.3 fL (7.4-10.4); Platelet Count 446 thou/uL (130-400); RBC Distribution Width 12.1 % (11.5-14.5); Red Blood Cell (RBC) Count 4.01 mill/uL (4.70-6.10); White Blood Cell (WBC) Count 7.5 thou/uL (4.8-10.8)
[2020-07-07 05:15] LABS: Anion Gap 11 mmol/L (10-20); BUN (Urea Nitrogen) 10 mg/dL (8.4-25.7); Calc. Creatinine Clearance 78 mL/min (70-130); Calcium 8.8 mg/dL (7.8-10.44); Carbon Dioxide 26 mmol/L (22-29); Chloride 107 mmol/L (98-107); Glucose 90 mg/dL (70-105); Potassium 4.1 mmol/L (3.5-5.1); Sodium 140 mmol/L (136-145)
[2020-07-07 06:08] LABS: CKMB 32.7 ng/mL (0-6.6)
[2020-07-07] MEDS ORDERED: Enoxaparin Sodium 80 MG/0.8 ML SYRINGE SC SCH ×2 (08:00→09:00)
[2020-07-07 08:01] LABS: Troponin I 10.931 ng/mL (< 0.028)
[2020-07-07] MEDS ORDERED: Aspirin Chewable 81 MG TAB ONE (10:44)
[2020-07-07] MEDS ORDERED: Enoxaparin Sodium 80 MG/0.8 ML SYRINGE ONE (10:45)
[2020-07-07] MEDS ORDERED: Famotidine/PF 20 mg/2ml Vial ONE (10:45)
[2020-07-07] MEDS: Aspirin Chewable 81 MG TAB PO SCH (10:46)
[2020-07-07] MEDS: Famotidine/PF 20 mg/2ml Vial SLOW IVP SCH ×2 (10:46→20:41)
[2020-07-07] MEDS ORDERED: Heparin 10,000 UNITS/ 10 ML VIAL SLOW IVP SCH (11:15)
[2020-07-07] MEDS ORDERED: Heparin 25,000 units/D5W 500 ML IVPB SCH (11:15)
[2020-07-07 11:56] LABS: Hemoglobin 13.5 g/dL (14.0-18.0); Platelet Count 486 thou/uL (130-400)
[2020-07-07 16:01] VITALS: BMI 21.1
[2020-07-07 17:12] LABS: Critical Call Chem Troponin I RESULT DECREASING
[2020-07-07 17:33] LABS: CKMB 21.4 ng/mL (0-6.6); Critical Call CKMB RESULT DECREASING
[2020-07-07] MEDS: Enoxaparin Sodium 80 MG/0.8 ML SYRINGE SC SCH (20:41)
[2020-07-07] MEDS ORDERED: Magnesium 2 GM/50 ML 2 GM in Premix Bag 1 BAG IVPB SCH (23:00)
[2020-07-08] MEDS: Aspirin Chewable 81 MG TAB PO SCH (09:41)
[2020-07-08] MEDS: Famotidine/PF 20 mg/2ml Vial SLOW IVP SCH ×2 (09:41→20:23)
[2020-07-08] MEDS: Enoxaparin Sodium 80 MG/0.8 ML SYRINGE SC SCH ×2 (09:41→20:24)
[2020-07-08] MEDS: levETIRAcetam 500 MG TAB PO SCH ×2 (09:41→20:23)
[2020-07-08] MEDS: Lisinopril 5 MG TAB PO SCH (09:42)
[2020-07-08] MEDS: Clopidogrel Bisulfate 75 MG TAB PO SCH (09:42)
[2020-07-08] MEDS: Carvedilol 3.125 MG TAB PO SCH ×2 (09:42→17:02)
[2020-07-08] MEDS: Atorvastatin Calcium 40 MG TAB PO SCH (20:23)
[2020-07-09] MEDS: levETIRAcetam 500 MG TAB PO SCH ×2 (09:18→21:18)
[2020-07-09] MEDS: Clopidogrel Bisulfate 75 MG TAB PO SCH (09:18)
[2020-07-09] MEDS: Aspirin Chewable 81 MG TAB PO SCH (09:18)
[2020-07-09] MEDS: Lisinopril 5 MG TAB PO SCH (09:19)
[2020-07-09] MEDS: Famotidine/PF 20 mg/2ml Vial SLOW IVP SCH (09:19)
[2020-07-09] MEDS: Enoxaparin Sodium 80 MG/0.8 ML SYRINGE SC SCH ×2 (09:19→21:19)
[2020-07-09] MEDS: Carvedilol 3.125 MG TAB PO SCH ×2 (09:19→17:22)
[2020-07-09 11:41] LABS: Hemoglobin 14.2 g/dL (14.0-18.0); Platelet Count 427 thou/uL (130-400)
[2020-07-09] MEDS: Famotidine 20 MG TAB PO SCH (21:18)
[2020-07-09] MEDS: Atorvastatin Calcium 40 MG TAB PO SCH (21:18)
[2020-07-10] MEDS: levETIRAcetam 500 MG TAB PO SCH ×2 (08:53→20:53)
[2020-07-10] MEDS: Famotidine 20 MG TAB PO SCH ×2 (08:53→20:53)
[2020-07-10] MEDS: Lisinopril 5 MG TAB PO SCH (08:53)
[2020-07-10] MEDS: Clopidogrel Bisulfate 75 MG TAB PO SCH (08:53)
[2020-07-10] MEDS: Enoxaparin Sodium 80 MG/0.8 ML SYRINGE SC SCH (08:53)
[2020-07-10] MEDS: Carvedilol 3.125 MG TAB PO SCH ×2 (08:53→16:00)
[2020-07-10] MEDS: Aspirin Chewable 81 MG TAB PO SCH (08:53)
[2020-07-10] MEDS: Atorvastatin Calcium 40 MG TAB PO SCH (20:53)
[2020-07-11 07:43] VITALS: BP 104/58; TEMP 97.7
[2020-07-11] MEDS: Aspirin Chewable 81 MG TAB PO SCH (08:46)
[2020-07-11] MEDS: Famotidine 20 MG TAB PO SCH (08:46)
[2020-07-11] MEDS: Clopidogrel Bisulfate 75 MG TAB PO SCH (08:46)
[2020-07-11] MEDS: levETIRAcetam 500 MG TAB PO SCH (08:46)
[2020-07-11] MEDS: Carvedilol 3.125 MG TAB PO SCH (08:46)
[2020-07-11] MEDS: Lisinopril 5 MG TAB PO SCH (08:46)
== END 2020-07-11 10:52 | disposition home or self-care (01) | DRG 281 ==
LOC: ERS 18:05 → ERHOLD 22:18 → 2SE 07-07 15:30
PROVIDERS: ADMIT Internal Medicine; ATTEND Internal Medicine
DX: I97.190 Other postprocedural cardiac functional disturbances following cardiac surgery (principal); I21.A9 Other myocardial infarction type; I69.351 Hemiplegia and hemiparesis following cerebral infarction affecting right dominant side; I25.700 Atherosclerosis of coronary artery bypass graft(s), unspecified, with unstable angina pectoris; E78.5 Hyperlipidemia, unspecified; I10 Essential (primary) hypertension; G40.909 Epilepsy, unspecified, not intractable, without status epilepticus; Y83.2 Surgical operation with anastomosis, bypass or graft as the cause of abnormal reaction of the patient, or of later complication, without mention of misadventure at the time of the procedure; Z20.822 Contact with and (suspected) exposure to COVID-19; I95.9 Hypotension, unspecified; Z95.1 Presence of aortocoronary bypass graft; I69.320 Aphasia following cerebral infarction; Z79.82 Long term (current) use of aspirin; Z88.1 Allergy status to other antibiotic agents; Z98.1 Arthrodesis status; Z95.5 Presence of coronary angioplasty implant and graft; Z87.891 Personal history of nicotine dependence; I69.321 Dysphasia following cerebral infarction
CPT/HCPCS: 36415; 36416; 71045; 80048; 80053; 82140; 82553; 83690; 83735; 83880; 84484; 85014; 85018; 85025; 85049; 85730; 87040; 93005; 93010; 93306; 94760; 96372; G0378; J1644; J1650; J3475; S0028

== ENCOUNTER 2020-07-21 03:29 | Inpatient (IN) | payer BC ==
[2020-07-21] MEDS ORDERED: Aspirin 325 MG TAB ONE (03:52)
[2020-07-21 07:24] LABS: ALT (SGPT) 64 U/L (8-55); AST (SGOT) 36 U/L (5-34); Albumin 3.9 g/dL (3.5-5.0); Alkaline Phosphatase 178 U/L (40-110); Anion Gap 15 mmol/L (10-20); BUN (Urea Nitrogen) 12 mg/dL (8.4-25.7); Bilirubin, Total 0.4 mg/dL (0.2-1.2); CK (CPK) 44 U/L (30-200); Calc. Creatinine Clearance 0 mL/min (70-130); Calcium 9.7 mg/dL (7.8-10.44); Carbon Dioxide 27 mmol/L (22-29); Chloride 101 mmol/L (98-107); Globulin 3.1 g/dL (2.4-3.5); Glucose 87 mg/dL (70-105); Potassium 3.9 mmol/L (3.5-5.1); Sodium 139 mmol/L (136-145); Troponin I 0.025 ng/mL (< 0.028)
[2020-07-21 07:25] LABS: #Basophils 0.1 thou/uL (0.0-0.2); #Eosinphils 0.3 thou/uL (0.0-0.7); #Lymphocytes 2.1 thou/uL (1.20-3.40); #Monocytes 0.7 thou/uL (0.11-0.59); #Neutrophils 4.5 thou/uL (1.40-6.50); %Basophils 1.1 % (0.0-1.0); %Eosinophils 4.2 % (0.0-10.0); %Lymphocytes 26.6 % (21.0-51.0); %Monocytes 9.5 % (0.0-10.0); %Neutrophils 58.6 % (42.0-75.0); Hemoglobin 14.1 g/dL (14.0-18.0); Mean Corpuscular HGB CONC 33.7 g/dL (32.0-36.0); Mean Corpuscular Hemoglobin 33.2 pg (27.0-31.0); Mean Corpuscular Volume 98.4 fL (78.0-98.0); Mean Platelet Volume 8.9 fL (7.4-10.4); Platelet Count 216 thou/uL (130-400); Red Blood Cell (RBC) Count 4.25 mill/uL (4.70-6.10); White Blood Cell (WBC) Count 7.7 thou/uL (4.8-10.8)
[2020-07-21] MEDS ORDERED: Acetaminophen 325 MG TAB PO PRN (09:09)
[2020-07-21] MEDS ORDERED: Nitroglycerin 0.4 MG TAB (25 Tab Bottle) SL PRN (09:09)
[2020-07-21] MEDS: Nicotine 14 MG PATCH TD SCH (10:50)
[2020-07-21 12:03] LABS: Troponin I 1.203 ng/mL (< 0.028)
[2020-07-21] MEDS ORDERED: Enoxaparin Sodium 80 MG/0.8 ML SYRINGE SC SCH (13:00)
[2020-07-21] MEDS ORDERED: Communication Order-Pharmacy FS SCH (13:15)
[2020-07-21 15:46] VITALS: BMI 21.2
[2020-07-21 15:56] LABS: SARS-CoV-2 PCR by NAA Not Detected (NotDetected)
[2020-07-21 16:33] LABS: Troponin I 2.804 ng/mL (< 0.028)
[2020-07-21 18:46] LABS: Troponin I 2.869 ng/mL (< 0.028)
[2020-07-21] MEDS: Atorvastatin Calcium 40 MG TAB PO SCH (19:49)
[2020-07-21] MEDS: levETIRAcetam 500 MG TAB PO SCH (19:49)
[2020-07-21] MEDS: Famotidine 20 MG TAB PO SCH (19:49)
[2020-07-21] MEDS ORDERED: Atorvastatin Calcium 40 MG TAB PO SCH (21:00)
[2020-07-21 22:13] LABS: Critical Call Chem Troponin I RESULT DECREASING; Troponin I 2.514 ng/mL (< 0.028)
[2020-07-22 01:34] LABS: Critical Call Chem Troponin I RESULT DECREASING; Troponin I 2.147 ng/mL (< 0.028)
[2020-07-22 05:12] LABS: Anion Gap 13 mmol/L (10-20); BUN (Urea Nitrogen) 11 mg/dL (8.4-25.7); Calc. Creatinine Clearance 55 mL/min (70-130); Calcium 8.7 mg/dL (7.8-10.44); Carbon Dioxide 23 mmol/L (22-29); Chloride 107 mmol/L (98-107); Glucose 86 mg/dL (70-105); Potassium 5.2 mmol/L (3.5-5.1); Sodium 138 mmol/L (136-145)
[2020-07-22] MEDS: Famotidine 20 MG TAB PO SCH ×2 (05:30→20:07)
[2020-07-22] MEDS: levETIRAcetam 500 MG TAB PO SCH ×2 (05:31→20:08)
[2020-07-22] MEDS ORDERED: Lidocaine 1% (PF) 30 ML VIAL ONE (06:29)
[2020-07-22 07:01] LABS: #Basophils 0.1 thou/uL (0.0-0.2); #Eosinphils 0.3 thou/uL (0.0-0.7); #Lymphocytes 1.8 thou/uL (1.20-3.40); #Monocytes 0.7 thou/uL (0.11-0.59); #Neutrophils 3.6 thou/uL (1.40-6.50); %Basophils 0.9 % (0.0-1.0); %Eosinophils 4.4 % (0.0-10.0); %Lymphocytes 27.9 % (21.0-51.0); %Monocytes 10.8 % (0.0-10.0); %Neutrophils 55.9 % (42.0-75.0); Hemoglobin 13.3 g/dL (14.0-18.0); Mean Corpuscular HGB CONC 34.6 g/dL (32.0-36.0); Mean Corpuscular Hemoglobin 33.6 pg (27.0-31.0); Mean Corpuscular Volume 97.4 fL (78.0-98.0); Mean Platelet Volume 8.6 fL (7.4-10.4); Platelet Count 191 thou/uL (130-400); RBC Distribution Width 11.9 % (11.5-14.5); Red Blood Cell (RBC) Count 3.96 mill/uL (4.70-6.10); White Blood Cell (WBC) Count 6.4 thou/uL (4.8-10.8)
[2020-07-22] MEDS ORDERED: Fentanyl 100 MCG/2 ML VIAL ONE (07:34)
[2020-07-22] MEDS ORDERED: Midazolam HCl 2 mg/2 ml Vial ONE (07:34)
[2020-07-22] MEDS ORDERED: Nitroglycerin 100MG/250ML BOT 250 ML ONE (07:50)
[2020-07-22] MEDS ORDERED: Sodium Chloride 0.9% 200 ML IV PRN (08:08)
[2020-07-22] MEDS ORDERED: Acetaminophen/Codeine 30-300mg Tablet PO PRN (08:08)
[2020-07-22] MEDS ORDERED: Sodium Chloride 0.9% 500 ML IV SCH (08:15)
[2020-07-22] MEDS: Rivaroxaban 2.5 MG TAB PO SCH ×2 (09:40→20:08)
[2020-07-22] MEDS: Nicotine 14 MG PATCH TD SCH (09:41)
[2020-07-22] MEDS ORDERED: Iopamidol 370 76% 100 ML VIAL ONE (12:14)
[2020-07-22] MEDS ORDERED: Aspirin 81 mg Enteric Coated Tablet PO SCH (17:00)
[2020-07-22] MEDS ORDERED: Clopidogrel Bisulfate 75 MG TAB PO SCH (17:00)
[2020-07-22] MEDS: Atorvastatin Calcium 40 MG TAB PO SCH (20:07)
[2020-07-23 04:27] LABS: #Basophils 0.1 thou/uL (0.0-0.2); #Eosinphils 0.3 thou/uL (0.0-0.7); #Lymphocytes 1.7 thou/uL (1.20-3.40); #Monocytes 0.8 thou/uL (0.11-0.59); #Neutrophils 4.2 thou/uL (1.40-6.50); %Basophils 1.2 % (0.0-1.0); %Eosinophils 4.2 % (0.0-10.0); %Lymphocytes 24.7 % (21.0-51.0); %Monocytes 10.7 % (0.0-10.0); %Neutrophils 59.1 % (42.0-75.0); Hemoglobin 13.1 g/dL (14.0-18.0); Mean Corpuscular HGB CONC 32.8 g/dL (32.0-36.0); Mean Corpuscular Hemoglobin 32.2 pg (27.0-31.0); Mean Corpuscular Volume 98.3 fL (78.0-98.0); Mean Platelet Volume 8.5 fL (7.4-10.4); Platelet Count 188 thou/uL (130-400); RBC Distribution Width 11.9 % (11.5-14.5); Red Blood Cell (RBC) Count 4.05 mill/uL (4.70-6.10)
[2020-07-23 05:28] LABS: Anion Gap 12 mmol/L (10-20); BUN (Urea Nitrogen) 11 mg/dL (8.4-25.7); Calc. Creatinine Clearance 56 mL/min (70-130); Calcium 8.9 mg/dL (7.8-10.44); Carbon Dioxide 24 mmol/L (22-29); Chloride 105 mmol/L (98-107); Glucose 89 mg/dL (70-105); Potassium 3.8 mmol/L (3.5-5.1); Sodium 137 mmol/L (136-145)
[2020-07-23] MEDS ORDERED: Clopidogrel Bisulfate 75 MG TAB PO SCH (09:00)
[2020-07-23] MEDS ORDERED: Aspirin 81 mg Enteric Coated Tablet PO SCH (09:00)
[2020-07-23] MEDS: levETIRAcetam 500 MG TAB PO SCH (09:35)
[2020-07-23] MEDS: Famotidine 20 MG TAB PO SCH (09:35)
[2020-07-23] MEDS: Rivaroxaban 2.5 MG TAB PO SCH (09:40)
[2020-07-23] MEDS: Nicotine 14 MG PATCH TD SCH (09:41)
[2020-07-23 12:14] VITALS: BP 111/67; TEMP 97.9
== END 2020-07-23 13:13 | disposition home or self-care (01) | DRG 281 ==
LOC: ERS 03:29 → ERHOLD 06:25 → 2NO 09:49 → OBSVTOIN 17:49
PROVIDERS: ADMIT Internal Medicine; ATTEND Student in an Organized Health Care Education/Training Program
PROC: 4A023N7 Measurement of Cardiac Sampling and Pressure, Left Heart, Percutaneous Approach (ICD-10-PCS; principal; 2020-07-22)
PROC: B2111ZZ Fluoroscopy of Multiple Coronary Arteries using Low Osmolar Contrast (ICD-10-PCS; 2020-07-22)
PROC: B2181ZZ Fluoroscopy of Left Internal Mammary Bypass Graft using Low Osmolar Contrast (ICD-10-PCS; 2020-07-22)
PROC: B21F1ZZ Fluoroscopy of Other Bypass Graft using Low Osmolar Contrast (ICD-10-PCS; 2020-07-22)
DX: I21.A1 Myocardial infarction type 2 (principal); T82.867A Thrombosis due to cardiac prosthetic devices, implants and grafts, initial encounter; I25.10 Atherosclerotic heart disease of native coronary artery without angina pectoris; E78.5 Hyperlipidemia, unspecified; F17.210 Nicotine dependence, cigarettes, uncomplicated; Y83.2 Surgical operation with anastomosis, bypass or graft as the cause of abnormal reaction of the patient, or of later complication, without mention of misadventure at the time of the procedure; Z20.822 Contact with and (suspected) exposure to COVID-19; Z95.1 Presence of aortocoronary bypass graft; Z98.1 Arthrodesis status; Z82.49 Family history of ischemic heart disease and other diseases of the circulatory system; Z88.1 Allergy status to other antibiotic agents; I69.320 Aphasia following cerebral infarction; Z79.899 Other long term (current) drug therapy; Z79.82 Long term (current) use of aspirin
CPT/HCPCS: 36415; 71045; 80048; 80053; 82550; 84484; 85025; 87635; 93005; 93306; 93455; 93798; 94760; 96372; 99152; 99285; G0378; J1650; J2001; J2250; J3010; Q9967; U0003; U0005

== ENCOUNTER 2020-07-27 22:29 | Inpatient (IN) | payer BC ==
[2020-07-28] MEDS ORDERED: Acetaminophen 325 MG TAB PO PRN (01:35)
[2020-07-28] MEDS ORDERED: Ondansetron ODT 4 MG TAB PO PRN (01:35)
[2020-07-28] MEDS ORDERED: Ondansetron PF 4 MG/2 ML Vial IVP PRN (01:35)
[2020-07-28] MEDS ORDERED: Calcium Carbonate 500 MG ChewTAB PO PRN (01:35)
[2020-07-28] MEDS ORDERED: Nitroglycerin 0.4 MG TAB (25 Tab Bottle) SL PRN (01:37)
[2020-07-28 03:03] LABS: #Basophils 0.1 thou/uL (0.0-0.2); #Eosinphils 0.6 thou/uL (0.0-0.7); #Monocytes 0.8 thou/uL (0.11-0.59); #Neutrophils 3.9 thou/uL (1.40-6.50); %Lymphocytes 27.4 % (21.0-51.0); %Monocytes 10.7 % (0.0-10.0); %Neutrophils 52.8 % (42.0-75.0); Hemoglobin 12.4 g/dL (14.0-18.0); Mean Corpuscular HGB CONC 34.4 g/dL (32.0-36.0); Mean Corpuscular Hemoglobin 33.6 pg (27.0-31.0); Mean Corpuscular Volume 97.6 fL (78.0-98.0); Platelet Count 189 thou/uL (130-400); White Blood Cell (WBC) Count 7.3 thou/uL (4.8-10.8)
[2020-07-28 03:25] LABS: Anion Gap 13 mmol/L (10-20); BUN (Urea Nitrogen) 11 mg/dL (8.4-25.7); Calc. Creatinine Clearance 0 mL/min (70-130); Calcium 8.4 mg/dL (7.8-10.44); Carbon Dioxide 24 mmol/L (22-29); Chloride 107 mmol/L (98-107); Glucose 87 mg/dL (70-105); Sodium 140 mmol/L (136-145)
[2020-07-28 03:31] LABS: Troponin I 0.106 ng/mL (< 0.028)
[2020-07-28 04:53] VITALS: BMI 21.1
[2020-07-28 06:22] LABS: Troponin I 0.118 ng/mL (< 0.028)
[2020-07-28] MEDS ORDERED: Rivaroxaban 2.5 MG TAB PO SCH ×2 (09:00→13:45)
[2020-07-28] MEDS ORDERED: Famotidine 20 MG TAB PO SCH (09:00)
[2020-07-28] MEDS: levETIRAcetam 500 MG TAB PO SCH ×2 (09:40→20:26)
[2020-07-28] MEDS: Clopidogrel Bisulfate 75 MG TAB PO SCH (09:40)
[2020-07-28] MEDS: Aspirin Chewable 81 MG TAB PO SCH (09:40)
[2020-07-28] MEDS: Famotidine/PF 20 mg/2ml Vial SLOW IVP SCH ×2 (09:42→20:26)
[2020-07-28] MEDS: Carvedilol 3.125 MG TAB PO SCH ×2 (09:57→15:37)
[2020-07-28] MEDS: Lisinopril 5 MG TAB PO SCH (09:58)
[2020-07-28] MEDS: Rivaroxaban 2.5 MG TAB PO SCH (20:26)
[2020-07-28] MEDS ORDERED: Atorvastatin Calcium 40 MG TAB PO SCH (21:00)
[2020-07-29] MEDS: Carvedilol 3.125 MG TAB PO SCH (09:54)
[2020-07-29] MEDS: Lisinopril 5 MG TAB PO SCH (09:54)
[2020-07-29] MEDS: Clopidogrel Bisulfate 75 MG TAB PO SCH (09:55)
[2020-07-29] MEDS: Rivaroxaban 2.5 MG TAB PO SCH (09:55)
[2020-07-29] MEDS: Aspirin Chewable 81 MG TAB PO SCH (09:55)
[2020-07-29] MEDS: Famotidine/PF 20 mg/2ml Vial SLOW IVP SCH (09:56)
[2020-07-29] MEDS: levETIRAcetam 500 MG TAB PO SCH (09:57)
[2020-07-29 11:37] VITALS: BP 140/76; TEMP 97.6
== END 2020-07-29 14:57 | disposition home or self-care (01) | DRG 392 ==
LOC: ERS 22:29 → 2SE 07-28 00:36
PROVIDERS: ADMIT Student in an Organized Health Care Education/Training Program; ATTEND Internal Medicine
DX: R10.13 Epigastric pain (principal); R07.89 Other chest pain; I25.10 Atherosclerotic heart disease of native coronary artery without angina pectoris; E78.2 Mixed hyperlipidemia; D53.9 Nutritional anemia, unspecified; I12.9 Hypertensive chronic kidney disease with stage 1 through stage 4 chronic kidney disease, or unspecified chronic kidney disease; N18.2 Chronic kidney disease, stage 2 (mild); I25.2 Old myocardial infarction; Z95.1 Presence of aortocoronary bypass graft; I69.320 Aphasia following cerebral infarction; Z87.891 Personal history of nicotine dependence; Z88.1 Allergy status to other antibiotic agents; Z82.49 Family history of ischemic heart disease and other diseases of the circulatory system
CPT/HCPCS: 36415; 76705; 80048; 84484; 85025; 94760; 99285; S0028

== ENCOUNTER 2020-08-02 05:03 | Observation (INO) | payer BC ==
[2020-08-02] MEDS ORDERED: Aspirin Chewable 81 MG TAB ONE (05:13)
[2020-08-02] MEDS ORDERED: Nitroglycerin 2% Ointment 1 INCH/1 GM Packet ONE (05:13)
[2020-08-02 05:37] LABS: #Eosinphils 0.5 thou/uL (0.0-0.7); #Lymphocytes 1.6 thou/uL (1.20-3.40); #Monocytes 0.9 thou/uL (0.11-0.59); #Neutrophils 5.2 thou/uL (1.40-6.50); %Basophils 0.6 % (0.0-1.0); %Eosinophils 6.1 % (0.0-10.0); %Lymphocytes 19.4 % (21.0-51.0); %Monocytes 11.1 % (0.0-10.0); %Neutrophils 62.9 % (42.0-75.0); Mean Corpuscular HGB CONC 33.2 g/dL (32.0-36.0); Mean Corpuscular Hemoglobin 32.5 pg (27.0-31.0); Mean Corpuscular Volume 97.8 fL (78.0-98.0); Mean Platelet Volume 7.1 fL (7.4-10.4); Platelet Count 269 thou/uL (130-400); RBC Distribution Width 12.1 % (11.5-14.5); Red Blood Cell (RBC) Count 4.01 mill/uL (4.70-6.10); White Blood Cell (WBC) Count 8.2 thou/uL (4.8-10.8)
[2020-08-02 06:05] LABS: ALT (SGPT) 40 U/L (8-55); AST (SGOT) 30 U/L (5-34); Albumin 3.7 g/dL (3.5-5.0); Alkaline Phosphatase 141 U/L (40-110); Anion Gap 14 mmol/L (10-20); BUN (Urea Nitrogen) 8 mg/dL (8.4-25.7); Bilirubin, Total 0.4 mg/dL (0.2-1.2); Calc. Creatinine Clearance 0 mL/min (70-130); Calcium 8.9 mg/dL (7.8-10.44); Carbon Dioxide 23 mmol/L (22-29); Chloride 104 mmol/L (98-107); Glucose 87 mg/dL (70-105); Protein, Total 6.7 g/dL (6.0-8.3); Sodium 137 mmol/L (136-145)
[2020-08-02] MEDS ORDERED: Morphine 4 MG/ML VIAL ONE (06:24)
[2020-08-02] MEDS ORDERED: diphenhydrAMINE 50 MG/ML VIAL ONE (06:34)
[2020-08-02] MEDS ORDERED: Acetaminophen 325 MG TAB PO PRN (09:07)
[2020-08-02] MEDS ORDERED: HYDROcodone/Acetaminophen 5/325 mg Tablet PO PRN ×2 (09:07)
[2020-08-02] MEDS ORDERED: Morphine 4 MG/ML VIAL SLOW IVP PRN (09:25)
[2020-08-02 10:17] LABS: Troponin I 0.023 ng/mL (< 0.028)
[2020-08-02] MEDS ORDERED: Rivaroxaban 2.5 MG TAB PO SCH (11:45)
[2020-08-02] MEDS ORDERED: levETIRAcetam 500 MG TAB PO SCH (11:45)
[2020-08-02] MEDS ORDERED: Clopidogrel Bisulfate 75 MG TAB PO SCH (11:45)
[2020-08-02] MEDS: Pantoprazole 40 MG VIAL IVP SCH ×2 (11:48→21:05)
[2020-08-02 12:03] VITALS: BMI 22.1
[2020-08-02 13:25] LABS: Troponin I 0.022 ng/mL (< 0.028)
[2020-08-02 16:31] LABS: SARS-CoV-2 PCR by NAA Not Detected (NotDetected)
[2020-08-02] MEDS: Atorvastatin Calcium 40 MG TAB PO SCH (21:03)
[2020-08-02] MEDS: levETIRAcetam 500 MG TAB PO SCH (21:03)
[2020-08-02] MEDS: Nicotine 14 MG PATCH TD SCH (21:03)
[2020-08-02] MEDS: Rivaroxaban 2.5 MG TAB PO SCH (21:06)
[2020-08-03 05:29] LABS: #Eosinphils 0.5 thou/uL (0.0-0.7); #Lymphocytes 1.8 thou/uL (1.20-3.40); #Monocytes 0.6 thou/uL (0.11-0.59); #Neutrophils 3.4 thou/uL (1.40-6.50); %Basophils 0.7 % (0.0-1.0); %Eosinophils 7.8 % (0.0-10.0); %Lymphocytes 28.5 % (21.0-51.0); %Monocytes 9.5 % (0.0-10.0); %Neutrophils 53.5 % (42.0-75.0); Hemoglobin 12.5 g/dL (14.0-18.0); Mean Corpuscular HGB CONC 34.3 g/dL (32.0-36.0); Mean Corpuscular Hemoglobin 33.4 pg (27.0-31.0); Mean Corpuscular Volume 97.5 fL (78.0-98.0); Mean Platelet Volume 7.1 fL (7.4-10.4); Platelet Count 244 thou/uL (130-400); RBC Distribution Width 12.2 % (11.5-14.5); Red Blood Cell (RBC) Count 3.74 mill/uL (4.70-6.10); White Blood Cell (WBC) Count 6.3 thou/uL (4.8-10.8)
[2020-08-03 05:47] LABS: Anion Gap 11 mmol/L (10-20); BUN (Urea Nitrogen) 9 mg/dL (8.4-25.7); Calc. Creatinine Clearance 57 mL/min (70-130); Calcium 8.8 mg/dL (7.8-10.44); Carbon Dioxide 26 mmol/L (22-29); Chloride 104 mmol/L (98-107); Glucose 76 mg/dL (70-105); Potassium 4.1 mmol/L (3.5-5.1); Sodium 137 mmol/L (136-145)
[2020-08-03] MEDS: Aspirin Chewable 81 MG TAB PO SCH (09:33)
[2020-08-03] MEDS: Pantoprazole 40 MG VIAL IVP SCH (09:33)
[2020-08-03] MEDS: levETIRAcetam 500 MG TAB PO SCH ×2 (09:34→20:26)
[2020-08-03] MEDS: Clopidogrel Bisulfate 75 MG TAB PO SCH (09:34)
[2020-08-03] MEDS: Rivaroxaban 2.5 MG TAB PO SCH ×2 (09:34→20:27)
[2020-08-03] MEDS ORDERED: Nitroglycerin 0.4 MG TAB (25 Tab Bottle) SL PRN (11:18)
[2020-08-03] MEDS: Carvedilol 3.125 MG TAB PO SCH (16:17)
[2020-08-03] MEDS: Atorvastatin Calcium 40 MG TAB PO SCH (20:26)
[2020-08-03] MEDS: Nicotine 14 MG PATCH TD SCH (21:36)
[2020-08-04 05:05] LABS: #Eosinphils 0.4 thou/uL (0.0-0.7); #Lymphocytes 1.7 thou/uL (1.20-3.40); #Monocytes 0.8 thou/uL (0.11-0.59); %Basophils 0.3 % (0.0-1.0); %Eosinophils 5.5 % (0.0-10.0); %Lymphocytes 21.3 % (21.0-51.0); Hemoglobin 12.9 g/dL (14.0-18.0); Mean Corpuscular HGB CONC 32.6 g/dL (32.0-36.0); Mean Corpuscular Hemoglobin 31.9 pg (27.0-31.0); Mean Corpuscular Volume 97.7 fL (78.0-98.0); Platelet Count 263 thou/uL (130-400); RBC Distribution Width 12.2 % (11.5-14.5); Red Blood Cell (RBC) Count 4.03 mill/uL (4.70-6.10); White Blood Cell (WBC) Count 7.9 thou/uL (4.8-10.8)
[2020-08-04 05:41] LABS: Anion Gap 12 mmol/L (10-20); BUN (Urea Nitrogen) 8 mg/dL (8.4-25.7); Calc. Creatinine Clearance 62 mL/min (70-130); Calcium 9.1 mg/dL (7.8-10.44); Carbon Dioxide 26 mmol/L (22-29); Chloride 102 mmol/L (98-107); Glucose 86 mg/dL (70-105); Potassium 3.9 mmol/L (3.5-5.1); Sodium 136 mmol/L (136-145)
[2020-08-04] MEDS: Rivaroxaban 2.5 MG TAB PO SCH (08:09)
[2020-08-04] MEDS: levETIRAcetam 500 MG TAB PO SCH (08:09)
[2020-08-04] MEDS: Carvedilol 3.125 MG TAB PO SCH (08:10)
[2020-08-04] MEDS: Aspirin Chewable 81 MG TAB PO SCH (08:10)
[2020-08-04] MEDS: Clopidogrel Bisulfate 75 MG TAB PO SCH (08:10)
[2020-08-04 12:54] VITALS: BP 107/75; TEMP 98.1
== END 2020-08-04 13:53 | disposition home or self-care (01) ==
LOC: ERS 05:03 → SUATTDRO 05:03 → 2SW 06:48
PROVIDERS: ADMIT Internal Medicine; ATTEND Hospitalist
DX: R07.9 Chest pain, unspecified (principal); R10.13 Epigastric pain; I25.10 Atherosclerotic heart disease of native coronary artery without angina pectoris; I25.2 Old myocardial infarction; I10 Essential (primary) hypertension; G40.909 Epilepsy, unspecified, not intractable, without status epilepticus; E78.5 Hyperlipidemia, unspecified; K21.9 Gastro-esophageal reflux disease without esophagitis; I48.91 Unspecified atrial fibrillation; Z79.01 Long term (current) use of anticoagulants; Z79.899 Other long term (current) drug therapy; Z86.73 Personal history of transient ischemic attack (TIA), and cerebral infarction without residual deficits; Z87.891 Personal history of nicotine dependence; Z88.1 Allergy status to other antibiotic agents; Z88.8 Allergy status to other drugs, medicaments and biological substances; Z95.1 Presence of aortocoronary bypass graft; Z20.822 Contact with and (suspected) exposure to COVID-19
CPT/HCPCS: 36415; 71045; 80048; 80053; 84484; 85025; 87635; 93005; 96374; 96375; 96376; C9113; G0378; J1200; J2270; U0003; U0005

== ENCOUNTER 2020-09-14 14:31 | Inpatient (IN) | payer BC ==
[2020-09-14] MEDS ORDERED: hydrALAZINE 20 MG/ML VIAL SLOW IVP PRN (16:33)
[2020-09-14] MEDS ORDERED: Enoxaparin Sodium 40 MG/0.4 ML SYRINGE SC SCH (16:45)
[2020-09-14] MEDS ORDERED: Aspirin Chewable 81 MG TAB PO SCH (17:01)
[2020-09-14 18:43] LABS: SARS-CoV-2 NAA Rapid Test Not Detected (NotDetected)
[2020-09-14 18:58] VITALS: BMI 23.8
[2020-09-14] MEDS ORDERED: Enoxaparin Sodium 40 MG/0.4 ML SYRINGE ONE (19:02)
[2020-09-14] MEDS: levETIRAcetam 500 MG TAB PO SCH (20:31)
[2020-09-14] MEDS: Rivaroxaban 2.5 MG TAB PO SCH (20:31)
[2020-09-14] MEDS: Atorvastatin Calcium 40 MG TAB PO SCH (20:31)
[2020-09-14] MEDS ORDERED: Atorvastatin Calcium 40 MG TAB PO SCH (21:00)
[2020-09-15 05:54] LABS: Cardiac Risk 3.9 (Less than 4.5)
[2020-09-15] MEDS: Rivaroxaban 2.5 MG TAB PO SCH ×2 (08:56→21:18)
[2020-09-15] MEDS: Aspirin Chewable 81 MG TAB PO SCH (08:57)
[2020-09-15] MEDS: Clopidogrel Bisulfate 75 MG TAB PO SCH (08:57)
[2020-09-15] MEDS: levETIRAcetam 500 MG TAB PO SCH ×2 (08:57→21:18)
[2020-09-15] MEDS ORDERED: Enoxaparin Sodium 40 MG/0.4 ML SYRINGE SC SCH (09:00)
[2020-09-15] MEDS ORDERED: Clopidogrel Bisulfate 75 MG TAB PO SCH (09:00)
[2020-09-15] MEDS ORDERED: Aspirin 81 mg Enteric Coated Tablet PO SCH (09:00)
[2020-09-15] MEDS: Atorvastatin Calcium 40 MG TAB PO SCH (21:17)
[2020-09-15] MEDS ORDERED: Carvedilol 3.125 MG TAB PO SCH (21:30)
[2020-09-16 05:18] LABS: #Eosinphils 0.2 thou/uL (0.0-0.7); #Lymphocytes 1.5 thou/uL (1.20-3.40); #Monocytes 0.8 thou/uL (0.11-0.59); #Neutrophils 3.9 thou/uL (1.40-6.50); %Basophils 0.1 % (0.0-1.0); %Eosinophils 3.7 % (0.0-10.0); %Lymphocytes 22.7 % (21.0-51.0); %Monocytes 12.5 % (0.0-10.0); %Neutrophils 61.1 % (42.0-75.0); Hemoglobin 12.8 g/dL (14.0-18.0); Mean Corpuscular HGB CONC 32.7 g/dL (32.0-36.0); Mean Corpuscular Hemoglobin 32.2 pg (27.0-31.0); Mean Corpuscular Volume 98.7 fL (78.0-98.0); Mean Platelet Volume 7.8 fL (7.4-10.4); Platelet Count 229 thou/uL (130-400); Red Blood Cell (RBC) Count 3.95 mill/uL (4.70-6.10); White Blood Cell (WBC) Count 6.4 thou/uL (4.8-10.8)
[2020-09-16 05:37] LABS: ALT (SGPT) 27 U/L (8-55); AST (SGOT) 23 U/L (5-34); Albumin 3.4 g/dL (3.5-5.0); Alkaline Phosphatase 104 U/L (40-110); Anion Gap 12 mmol/L (10-20); BUN (Urea Nitrogen) 9 mg/dL (8.4-25.7); Bilirubin, Total 0.3 mg/dL (0.2-1.2); Calc. Creatinine Clearance 67 mL/min (70-130); Calcium 8.5 mg/dL (7.8-10.44); Carbon Dioxide 27 mmol/L (22-29); Chloride 104 mmol/L (98-107); Globulin 2.5 g/dL (2.4-3.5); Glucose 88 mg/dL (70-105); Potassium 3.6 mmol/L (3.5-5.1); Protein, Total 5.9 g/dL (6.0-8.3); Sodium 139 mmol/L (136-145)
[2020-09-16] MEDS: Clopidogrel Bisulfate 75 MG TAB PO SCH (08:04)
[2020-09-16] MEDS: Aspirin Chewable 81 MG TAB PO SCH (08:04)
[2020-09-16] MEDS: Rivaroxaban 2.5 MG TAB PO SCH (08:04)
[2020-09-16] MEDS: levETIRAcetam 500 MG TAB PO SCH (08:05)
[2020-09-16] MEDS ORDERED: Carvedilol 3.125 MG TAB PO SCH (09:00)
[2020-09-16] MEDS ORDERED: Lisinopril 2.5 MG TAB PO SCH (09:00)
[2020-09-16 15:47] VITALS: BP 144/85; TEMP 98
== END 2020-09-16 17:59 | disposition home or self-care (01) | DRG 69 ==
LOC: ERS 14:31 → ERHOLD 16:07 → 2SW 23:20
PROVIDERS: ADMIT Internal Medicine; ATTEND Internal Medicine
DX: G45.9 Transient cerebral ischemic attack, unspecified (principal); I25.10 Atherosclerotic heart disease of native coronary artery without angina pectoris; Z20.822 Contact with and (suspected) exposure to COVID-19; E78.5 Hyperlipidemia, unspecified; I10 Essential (primary) hypertension; F17.210 Nicotine dependence, cigarettes, uncomplicated; I66.21 Occlusion and stenosis of right posterior cerebral artery; I25.5 Ischemic cardiomyopathy; G40.909 Epilepsy, unspecified, not intractable, without status epilepticus; I25.2 Old myocardial infarction; Z88.1 Allergy status to other antibiotic agents; Z95.1 Presence of aortocoronary bypass graft; I69.320 Aphasia following cerebral infarction; Z88.8 Allergy status to other drugs, medicaments and biological substances; Z79.899 Other long term (current) drug therapy; Z79.82 Long term (current) use of aspirin; Z79.02 Long term (current) use of antithrombotics/antiplatelets
CPT/HCPCS: 36415; 36416; 70551; 80053; 80061; 85025; 93306; 99285; J1650; U0002; U0005

== ENCOUNTER 2020-10-18 13:44 | Emergency (ER) | payer BC | END 2020-10-18 18:52 | disposition home or self-care (01) | LOC: ERS 13:44 | DX: S33.5XXA Sprain of ligaments of lumbar spine, initial encounter (principal); E78.5 Hyperlipidemia, unspecified; I10 Essential (primary) hypertension; Z87.891 Personal history of nicotine dependence; Z79.82 Long term (current) use of aspirin; Z79.899 Other long term (current) drug therapy; X58.XXXA Exposure to other specified factors, initial encounter | CPT/HCPCS: 36415; 36416; 70450; 71045; 71275; 72131; 74174; 80053; 84484; 85025; 93005; 96374; J1200; J2270; Q9967 ==

== ENCOUNTER 2021-01-10 03:57 | Observation (INO) | payer BC ==
[2021-01-10] MEDS ORDERED: Electrolyte Replacement Protocol 1 EACH FS SCH (17:15)
[2021-01-10] MEDS ORDERED: Potassium Chloride 20 MEQ TAB PO SCH (17:15)
[2021-01-10 18:12] VITALS: BMI 24.5
[2021-01-10] MEDS ORDERED: HYDROcodone/Acetaminophen 10/325 mg Tablet PO PRN (21:42)
[2021-01-10] MEDS ORDERED: Nitroglycerin 0.4 MG TAB (25 Tab Bottle) SL PRN (21:42)
[2021-01-10] MEDS ORDERED: Rivaroxaban 2.5 MG TAB PO SCH (22:30)
[2021-01-10] MEDS ORDERED: levETIRAcetam 500 MG TAB PO SCH (22:30)
[2021-01-10] MEDS ORDERED: Carvedilol 3.125 MG TAB PO SCH (22:30)
[2021-01-10] MEDS ORDERED: Atorvastatin Calcium 40 MG TAB PO SCH (22:30)
[2021-01-11] MEDS ORDERED: FLU VACC QS2021-22(6MOS UP)/PF 60 MCG/0.5 ML SYRINGE IM ONE (09:00)
[2021-01-11] MEDS: Aspirin 81 mg Enteric Coated Tablet PO SCH (09:20)
[2021-01-11] MEDS: levETIRAcetam 500 MG TAB PO SCH ×2 (09:20→21:49)
[2021-01-11] MEDS: Clopidogrel Bisulfate 75 MG TAB PO SCH (09:20)
[2021-01-11] MEDS: Carvedilol 3.125 MG TAB PO SCH ×2 (09:21→19:00)
[2021-01-11] MEDS: Rivaroxaban 2.5 MG TAB PO SCH ×2 (09:30→21:48)
[2021-01-11 10:59] LABS: #Eosinphils 0.2 thou/uL (0.0-0.7); #Lymphocytes 1.5 thou/uL (1.20-3.40); #Monocytes 0.8 thou/uL (0.11-0.59); #Neutrophils 4.4 thou/uL (1.40-6.50); %Basophils 0.4 % (0.0-1.0); %Eosinophils 2.6 % (0.0-10.0); %Lymphocytes 21.4 % (21.0-51.0); %Monocytes 11.4 % (0.0-10.0); %Neutrophils 64.3 % (42.0-75.0); Hemoglobin 13.6 g/dL (14.0-18.0); Mean Corpuscular HGB CONC 35.3 g/dL (32.0-36.0); Mean Corpuscular Hemoglobin 34.3 pg (27.0-31.0); Mean Corpuscular Volume 97.2 fL (78.0-98.0); Mean Platelet Volume 7.6 fL (7.4-10.4); Platelet Count 177 thou/uL (130-400); RBC Distribution Width 12.3 % (11.5-14.5); Red Blood Cell (RBC) Count 3.97 mill/uL (4.70-6.10); White Blood Cell (WBC) Count 6.8 thou/uL (4.8-10.8)
[2021-01-11 11:30] LABS: Chloride 104 mmol/L (98-107); Potassium 3.5 mmol/L (3.5-5.1); Sodium 141 mmol/L (136-145)
[2021-01-11 11:31] LABS: Calcium 8.5 mg/dL (7.8-10.44); Glucose 109 mg/dL (70-105)
[2021-01-11 11:33] LABS: Carbon Dioxide 28 mmol/L (22-29)
[2021-01-11 11:35] LABS: Calc. Creatinine Clearance 70 mL/min (70-130)
[2021-01-11 11:36] LABS: BUN (Urea Nitrogen) 7 mg/dL (8.4-25.7)
[2021-01-11 11:47] LABS: Anion Gap 13 mmol/L (10-20)
[2021-01-11] MEDS ORDERED: Potassium Chloride 20 MEQ TAB PO SCH (14:00)
[2021-01-11] MEDS ORDERED: Atorvastatin Calcium 40 MG TAB PO SCH (21:00)
[2021-01-12] MEDS: Aspirin 81 mg Enteric Coated Tablet PO SCH (09:58)
[2021-01-12] MEDS: Rivaroxaban 2.5 MG TAB PO SCH (09:58)
[2021-01-12] MEDS: Carvedilol 3.125 MG TAB PO SCH (09:58)
[2021-01-12] MEDS: levETIRAcetam 500 MG TAB PO SCH (09:58)
[2021-01-12] MEDS: Clopidogrel Bisulfate 75 MG TAB PO SCH (09:58)
[2021-01-12] MEDS ORDERED: Potassium Chloride 20 MEQ TAB PO SCH (15:45)
[2021-01-12 19:53] VITALS: BP 136/75; TEMP 97.6
== END 2021-01-12 15:43 | disposition home or self-care (01) ==
LOC: 2NO 03:57
PROVIDERS: ADMIT Student in an Organized Health Care Education/Training Program; ATTEND Internal Medicine
DX: L76.32 Postprocedural hematoma of skin and subcutaneous tissue following other procedure (principal); R07.89 Other chest pain; E87.6 Hypokalemia; I12.9 Hypertensive chronic kidney disease with stage 1 through stage 4 chronic kidney disease, or unspecified chronic kidney disease; N18.2 Chronic kidney disease, stage 2 (mild); D63.1 Anemia in chronic kidney disease; I25.10 Atherosclerotic heart disease of native coronary artery without angina pectoris; I69.320 Aphasia following cerebral infarction; E78.5 Hyperlipidemia, unspecified; K21.9 Gastro-esophageal reflux disease without esophagitis; M19.90 Unspecified osteoarthritis, unspecified site; I49.3 Ventricular premature depolarization; I25.2 Old myocardial infarction; I25.5 Ischemic cardiomyopathy; G40.909 Epilepsy, unspecified, not intractable, without status epilepticus; Z87.891 Personal history of nicotine dependence; Z79.01 Long term (current) use of anticoagulants; Z79.02 Long term (current) use of antithrombotics/antiplatelets; Z79.82 Long term (current) use of aspirin; Z79.899 Other long term (current) drug therapy; Z88.1 Allergy status to other antibiotic agents; Z88.8 Allergy status to other drugs, medicaments and biological substances; Z95.1 Presence of aortocoronary bypass graft; Z98.1 Arthrodesis status; Z95.818 Presence of other cardiac implants and grafts; Y83.8 Other surgical procedures as the cause of abnormal reaction of the patient, or of later complication, without mention of misadventure at the time of the procedure
CPT/HCPCS: 36415; 71250; 80048; 85025; 94760; G0378

== ENCOUNTER 2021-01-14 09:12 | Inpatient (IN) | payer BC ==
[2021-01-14] MEDS ORDERED: Iopamidol-370 76% 500 ML 1 ML ONE (09:41)
[2021-01-14 09:47] LABS: #Basophils 0.1 thou/uL (0.0-0.2); #Eosinphils 0.2 thou/uL (0.0-0.7); #Lymphocytes 1.5 thou/uL (1.20-3.40); #Monocytes 0.9 thou/uL (0.11-0.59); #Neutrophils 4.9 thou/uL (1.40-6.50); %Basophils 0.7 % (0.0-1.0); %Eosinophils 2.4 % (0.0-10.0); %Monocytes 11.7 % (0.0-10.0); %Neutrophils 65.1 % (42.0-75.0); Hemoglobin 14.8 g/dL (14.0-18.0); Mean Corpuscular HGB CONC 34.3 g/dL (32.0-36.0); Mean Corpuscular Hemoglobin 33.1 pg (27.0-31.0); Mean Corpuscular Volume 96.5 fL (78.0-98.0); Mean Platelet Volume 7.6 fL (7.4-10.4); Platelet Count 226 thou/uL (130-400); RBC Distribution Width 12.3 % (11.5-14.5); Red Blood Cell (RBC) Count 4.47 mill/uL (4.70-6.10); White Blood Cell (WBC) Count 7.6 thou/uL (4.8-10.8)
[2021-01-14 10:00] LABS: INR-International Normal Ratio 1.1; Prothrombin Time 14.7 sec (12.0-14.7)
[2021-01-14 10:01] LABS: PTT 30.3 sec (22.9-36.1)
[2021-01-14 10:07] LABS: ALT (SGPT) 48 U/L (8-55); AST (SGOT) 35 U/L (5-34); Alkaline Phosphatase 139 U/L (40-110); Anion Gap 14 mmol/L (10-20); BUN (Urea Nitrogen) 5 mg/dL (8.4-25.7); Bilirubin, Total 0.4 mg/dL (0.2-1.2); Calc. Creatinine Clearance 0 mL/min (70-130); Calcium 9.4 mg/dL (7.8-10.44); Carbon Dioxide 28 mmol/L (22-29); Chloride 102 mmol/L (98-107); Globulin 2.9 g/dL (2.4-3.5); Protein, Total 6.9 g/dL (6.0-8.3); Sodium 140 mmol/L (136-145)
[2021-01-14 10:21] LABS: Glucose 59 mg/dL (70-105)
[2021-01-14] MEDS ORDERED: Acetaminophen 325 MG TAB PO PRN (11:50)
[2021-01-14] MEDS ORDERED: Nitroglycerin 0.4 MG TAB (25 Tab Bottle) SL PRN (11:53)
[2021-01-14] MEDS ORDERED: HYDROcodone/Acetaminophen 5/325 mg Tablet PO PRN (11:53)
[2021-01-14] MEDS ORDERED: Dextrose 50% Abboject 50 ML SYRINGE SLOW IVP PRN (11:56)
[2021-01-14] MEDS ORDERED: Dextrose 5% in Water 1,000 ML IV PRN (11:56)
[2021-01-14] MEDS ORDERED: Acetaminophen 500 MG TAB ONE (12:41)
[2021-01-14 15:25] VITALS: BMI 25.8
[2021-01-14] MEDS ORDERED: FLU VACC QS2021-22(6MOS UP)/PF 60 MCG/0.5 ML SYRINGE IM ONE (15:45)
[2021-01-14 17:29] LABS: SARS-CoV-2 NAA Rapid Test Not Detected (NotDetected)
[2021-01-14] MEDS: Carvedilol 3.125 MG TAB PO SCH (18:04)
[2021-01-14] MEDS: levETIRAcetam 500 MG TAB PO SCH (20:36)
[2021-01-14] MEDS: Atorvastatin Calcium 40 MG TAB PO SCH (20:36)
[2021-01-15 04:55] LABS: #Eosinphils 0.2 thou/uL (0.0-0.7); #Lymphocytes 1.6 thou/uL (1.20-3.40); #Monocytes 0.7 thou/uL (0.11-0.59); #Neutrophils 3.7 thou/uL (1.40-6.50); %Basophils 0.6 % (0.0-1.0); %Eosinophils 3.5 % (0.0-10.0); %Lymphocytes 25.7 % (21.0-51.0); %Neutrophils 59.3 % (42.0-75.0); Hemoglobin 14.4 g/dL (14.0-18.0); Mean Corpuscular HGB CONC 33.7 g/dL (32.0-36.0); Mean Corpuscular Hemoglobin 32.9 pg (27.0-31.0); Mean Corpuscular Volume 97.6 fL (78.0-98.0); Mean Platelet Volume 8.2 fL (7.4-10.4); Platelet Count 202 thou/uL (130-400); RBC Distribution Width 12.3 % (11.5-14.5); Red Blood Cell (RBC) Count 4.37 mill/uL (4.70-6.10); White Blood Cell (WBC) Count 6.2 thou/uL (4.8-10.8)
[2021-01-15 05:15] LABS: Anion Gap 16 mmol/L (10-20); BUN (Urea Nitrogen) 8 mg/dL (8.4-25.7); Calc. Creatinine Clearance 81 mL/min (70-130); Calcium 8.8 mg/dL (7.8-10.44); Carbon Dioxide 25 mmol/L (22-29); Chloride 102 mmol/L (98-107); Glucose 84 mg/dL (70-105); Sodium 139 mmol/L (136-145)
[2021-01-15] MEDS: Carvedilol 3.125 MG TAB PO SCH ×2 (07:32→16:30)
[2021-01-15] MEDS: levETIRAcetam 500 MG TAB PO SCH ×2 (07:32→21:54)
[2021-01-15] MEDS: Atorvastatin Calcium 40 MG TAB PO SCH (21:54)
[2021-01-16] MEDS: levETIRAcetam 500 MG TAB PO SCH ×2 (09:29→22:23)
[2021-01-16] MEDS: Carvedilol 3.125 MG TAB PO SCH ×2 (09:30→17:54)
[2021-01-16] MEDS ORDERED: GoLYTELY 4,000 ml Bottle PO SCH (17:00)
[2021-01-16] MEDS: Atorvastatin Calcium 40 MG TAB PO SCH (22:23)
[2021-01-17 04:56] LABS: #Basophils 0.1 thou/uL (0.0-0.2); #Eosinphils 0.2 thou/uL (0.0-0.7); #Lymphocytes 1.8 thou/uL (1.20-3.40); #Monocytes 0.7 thou/uL (0.11-0.59); #Neutrophils 4.4 thou/uL (1.40-6.50); %Basophils 0.8 % (0.0-1.0); %Eosinophils 2.8 % (0.0-10.0); %Lymphocytes 25.4 % (21.0-51.0); %Monocytes 9.2 % (0.0-10.0); %Neutrophils 61.9 % (42.0-75.0); Hemoglobin 14.6 g/dL (14.0-18.0); Mean Corpuscular HGB CONC 32.6 g/dL (32.0-36.0); Mean Corpuscular Hemoglobin 32.2 pg (27.0-31.0); Mean Corpuscular Volume 98.7 fL (78.0-98.0); Mean Platelet Volume 8.6 fL (7.4-10.4); Platelet Count 212 thou/uL (130-400); RBC Distribution Width 12.5 % (11.5-14.5); Red Blood Cell (RBC) Count 4.53 mill/uL (4.70-6.10); White Blood Cell (WBC) Count 7.1 thou/uL (4.8-10.8)
[2021-01-17 05:16] LABS: Anion Gap 16 mmol/L (10-20); BUN (Urea Nitrogen) 6 mg/dL (8.4-25.7); Calc. Creatinine Clearance 78 mL/min (70-130); Calcium 8.6 mg/dL (7.8-10.44); Carbon Dioxide 24 mmol/L (22-29); Chloride 103 mmol/L (98-107); Glucose 77 mg/dL (70-105); Potassium 4.4 mmol/L (3.5-5.1); Sodium 139 mmol/L (136-145)
[2021-01-17] MEDS: levETIRAcetam 500 MG TAB PO SCH ×2 (08:26→21:48)
[2021-01-17] MEDS: Carvedilol 3.125 MG TAB PO SCH ×2 (08:26→18:11)
[2021-01-17] MEDS ORDERED: Lidocaine 1% PF 5 ML VIAL ONE (10:16)
[2021-01-17] MEDS ORDERED: PROPOFOL 200 MG/20 ML VIAL ONE (10:16)
[2021-01-17] MEDS: Atorvastatin Calcium 40 MG TAB PO SCH (21:49)
[2021-01-18] MEDS: Carvedilol 3.125 MG TAB PO SCH (09:12)
[2021-01-18] MEDS: levETIRAcetam 500 MG TAB PO SCH (09:12)
[2021-01-18 10:52] LABS: Hemoglobin 14.2 g/dL (14.0-18.0)
[2021-01-18 12:11] VITALS: BP 134/77; TEMP 97.8
== END 2021-01-18 15:39 | disposition home or self-care (01) | DRG 394 ==
LOC: ERS 09:12 → ERHOLD 10:56 → 2NO 14:37 → OBSVTOIN 01-15 13:22
PROVIDERS: ADMIT Family Medicine; ATTEND Internal Medicine
PROC: 0DBM8ZZ Excision of Descending Colon, Via Natural or Artificial Opening Endoscopic (ICD-10-PCS; principal; 2021-01-17)
DX: K64.8 Other hemorrhoids (principal); I69.351 Hemiplegia and hemiparesis following cerebral infarction affecting right dominant side; L76.32 Postprocedural hematoma of skin and subcutaneous tissue following other procedure; Z20.822 Contact with and (suspected) exposure to COVID-19; E78.5 Hyperlipidemia, unspecified; K21.9 Gastro-esophageal reflux disease without esophagitis; E16.2 Hypoglycemia, unspecified; R13.10 Dysphagia, unspecified; K63.5 Polyp of colon; I25.10 Atherosclerotic heart disease of native coronary artery without angina pectoris; I69.320 Aphasia following cerebral infarction; I69.391 Dysphagia following cerebral infarction; I69.322 Dysarthria following cerebral infarction; Z95.1 Presence of aortocoronary bypass graft; Z88.1 Allergy status to other antibiotic agents; Z91.048 Other nonmedicinal substance allergy status; Z79.899 Other long term (current) drug therapy; Z79.82 Long term (current) use of aspirin; Z90.89 Acquired absence of other organs; Z87.891 Personal history of nicotine dependence; R07.89 Other chest pain; E87.6 Hypokalemia; I12.9 Hypertensive chronic kidney disease with stage 1 through stage 4 chronic kidney disease, or unspecified chronic kidney disease; N18.2 Chronic kidney disease, stage 2 (mild); D63.1 Anemia in chronic kidney disease; M19.90 Unspecified osteoarthritis, unspecified site; I49.3 Ventricular premature depolarization; I25.2 Old myocardial infarction; I25.5 Ischemic cardiomyopathy; G40.909 Epilepsy, unspecified, not intractable, without status epilepticus; Y83.8 Other surgical procedures as the cause of abnormal reaction of the patient, or of later complication, without mention of misadventure at the time of the procedure
CPT/HCPCS: 36415; 36416; 71250; 74177; 80048; 80053; 85014; 85018; 85025; 85610; 85730; 86850; 86900; 86901; 88305; 93005; 94760; G0378; J2704; Q9967; U0002

== ENCOUNTER 2021-01-26 12:05 | Observation (INO) | payer BC ==
[2021-01-26 13:43] VITALS: BMI 21.6
[2021-01-26] MEDS ORDERED: hydrALAZINE 20 MG/ML VIAL SLOW IVP PRN (14:41)
[2021-01-26] MEDS ORDERED: Labetalol HCl 100 MG/20 ML VIAL SLOW IVP PRN (14:41)
[2021-01-26] MEDS ORDERED: FLU VACC QS2021-22(6MOS UP)/PF 60 MCG/0.5 ML SYRINGE IM ONE (18:00)
[2021-01-26] MEDS ORDERED: Electrolyte Replacement Protocol 1 EACH FS SCH (18:00)
[2021-01-26] MEDS ORDERED: Electrolyte Replacement Protocol FS PRN (18:15)
[2021-01-26 18:42] LABS: #Basophils 0.1 thou/uL (0.0-0.2); #Eosinphils 0.1 thou/uL (0.0-0.7); #Lymphocytes 1.6 thou/uL (1.20-3.40); #Monocytes 0.9 thou/uL (0.11-0.59); #Neutrophils 4.9 thou/uL (1.40-6.50); %Basophils 0.7 % (0.0-1.0); %Eosinophils 1.7 % (0.0-10.0); %Lymphocytes 21.4 % (21.0-51.0); %Monocytes 11.2 % (0.0-10.0); %Neutrophils 65.1 % (42.0-75.0); Hemoglobin 15.2 g/dL (14.0-18.0); Mean Corpuscular HGB CONC 34.9 g/dL (32.0-36.0); Mean Corpuscular Hemoglobin 33.9 pg (27.0-31.0); Mean Corpuscular Volume 97.1 fL (78.0-98.0); Mean Platelet Volume 7.9 fL (7.4-10.4); Platelet Count 206 thou/uL (130-400); RBC Distribution Width 12.3 % (11.5-14.5); Red Blood Cell (RBC) Count 4.47 mill/uL (4.70-6.10); White Blood Cell (WBC) Count 7.6 thou/uL (4.8-10.8)
[2021-01-26 19:04] LABS: ALT (SGPT) 68 U/L (8-55); AST (SGOT) 39 U/L (5-34); Alkaline Phosphatase 154 U/L (40-110); Anion Gap 13 mmol/L (10-20); BUN (Urea Nitrogen) 10 mg/dL (8.4-25.7); Bilirubin, Total 0.8 mg/dL (0.2-1.2); Calc. Creatinine Clearance 64 mL/min (70-130); Calcium 9.2 mg/dL (7.8-10.44); Carbon Dioxide 28 mmol/L (22-29); Chloride 99 mmol/L (98-107); Globulin 2.7 g/dL (2.4-3.5); Glucose 88 mg/dL (70-105); Potassium 3.4 mmol/L (3.5-5.1); Protein, Total 6.7 g/dL (6.0-8.3); Sodium 137 mmol/L (136-145)
[2021-01-26] MEDS: Rivaroxaban 2.5 MG TAB PO SCH (20:29)
[2021-01-26] MEDS: levETIRAcetam 500 MG TAB PO SCH (20:30)
[2021-01-26] MEDS: Carvedilol 3.125 MG TAB PO SCH (20:30)
[2021-01-26] MEDS ORDERED: Atorvastatin Calcium 40 MG TAB PO SCH (21:00)
[2021-01-26] MEDS ORDERED: Potassium Chloride 20 MEQ TAB PO SCH (22:15)
[2021-01-27 05:03] LABS: #Basophils 0.1 thou/uL (0.0-0.2); #Eosinphils 0.2 thou/uL (0.0-0.7); #Lymphocytes 1.7 thou/uL (1.20-3.40); #Monocytes 0.8 thou/uL (0.11-0.59); %Eosinophils 2.8 % (0.0-10.0); %Lymphocytes 22.3 % (21.0-51.0); %Monocytes 10.5 % (0.0-10.0); %Neutrophils 63.4 % (42.0-75.0); Hemoglobin 15.1 g/dL (14.0-18.0); Mean Corpuscular HGB CONC 34.7 g/dL (32.0-36.0); Mean Corpuscular Hemoglobin 33.4 pg (27.0-31.0); Mean Platelet Volume 7.9 fL (7.4-10.4); Platelet Count 206 thou/uL (130-400); RBC Distribution Width 12.2 % (11.5-14.5); Red Blood Cell (RBC) Count 4.52 mill/uL (4.70-6.10); White Blood Cell (WBC) Count 7.8 thou/uL (4.8-10.8)
[2021-01-27 05:25] LABS: ALT (SGPT) 64 U/L (8-55); AST (SGOT) 36 U/L (5-34); Alkaline Phosphatase 153 U/L (40-110); Anion Gap 13 mmol/L (10-20); BUN (Urea Nitrogen) 14 mg/dL (8.4-25.7); Bilirubin, Total 0.8 mg/dL (0.2-1.2); Calc. Creatinine Clearance 63 mL/min (70-130); Calcium 9.3 mg/dL (7.8-10.44); Carbon Dioxide 29 mmol/L (22-29); Cardiac Risk 4.6 (Less than 4.5); Chloride 99 mmol/L (98-107); Cholesterol 152 mg/dl (< 200 Desired); Globulin 2.6 g/dL (2.4-3.5); Glucose 122 mg/dL (70-105); HDL Cholesterol 33 mg/dL (>60 Neg Risk); LDL Cholesterol, Calculated 92 mg/dL; Potassium 3.4 mmol/L (3.5-5.1); Protein, Total 6.6 g/dL (6.0-8.3); Sodium 138 mmol/L (136-145); Triglycerides 134 mg/dL (Less than 150)
[2021-01-27 08:00] VITALS: BP 116/79; TEMP 97.5
[2021-01-27] MEDS ORDERED: Potassium Chloride 20 MEQ TAB PO SCH (08:00)
[2021-01-27] MEDS: Carvedilol 3.125 MG TAB PO SCH (08:00)
[2021-01-27] MEDS: levETIRAcetam 500 MG TAB PO SCH (08:00)
[2021-01-27] MEDS: Rivaroxaban 2.5 MG TAB PO SCH (08:01)
[2021-01-27] MEDS ORDERED: Aspirin 81 mg Enteric Coated Tablet PO SCH (09:00)
[2021-01-27] MEDS ORDERED: Clopidogrel Bisulfate 75 MG TAB PO SCH (09:00)
== END 2021-01-27 12:25 | disposition home or self-care (01) ==
LOC: 2SW 13:32
PROVIDERS: ADMIT Family Medicine; ATTEND Family Medicine
DX: G45.9 Transient cerebral ischemic attack, unspecified (principal); I69.328 Other speech and language deficits following cerebral infarction; E87.6 Hypokalemia; I25.2 Old myocardial infarction; R74.01 Elevation of levels of liver transaminase levels; E78.5 Hyperlipidemia, unspecified; I10 Essential (primary) hypertension; I25.10 Atherosclerotic heart disease of native coronary artery without angina pectoris; I25.5 Ischemic cardiomyopathy; G40.909 Epilepsy, unspecified, not intractable, without status epilepticus; Z87.891 Personal history of nicotine dependence; Z79.01 Long term (current) use of anticoagulants; Z79.02 Long term (current) use of antithrombotics/antiplatelets; Z79.82 Long term (current) use of aspirin; Z79.899 Other long term (current) drug therapy; Z88.1 Allergy status to other antibiotic agents; Z88.8 Allergy status to other drugs, medicaments and biological substances; Z95.1 Presence of aortocoronary bypass graft; Z95.818 Presence of other cardiac implants and grafts
CPT/HCPCS: 36415; 70551; 80053; 80061; 85025; G0378

== ENCOUNTER 2021-04-08 23:39 | Observation (INO) | payer BC ==
[2021-04-09 03:52] VITALS: BMI 26.2
[2021-04-09] MEDS ORDERED: Acetaminophen 325 MG TAB PO PRN (05:24)
[2021-04-09] MEDS ORDERED: Acetaminophen 650 MG Suppository PR PRN (05:24)
[2021-04-09] MEDS ORDERED: Calcium Carbonate 500 MG ChewTAB PO PRN (08:15)
[2021-04-09] MEDS ORDERED: Electrolyte Replacement Protocol 1 EACH FS SCH (08:15)
[2021-04-09] MEDS ORDERED: Senokot S 8.6-50 MG TAB PO PRN (08:15)
[2021-04-09] MEDS ORDERED: hydrALAZINE 20 MG/ML VIAL SLOW IVP PRN (08:23)
[2021-04-09] MEDS ORDERED: Magnesium 2 GM/50 ML 2 GM in Premix Bag 1 BAG IVPB PRN (08:25)
[2021-04-09] MEDS ORDERED: Potassium Chloride 20 MEQ TAB PO SCH (08:30)
[2021-04-09 09:15] LABS: Phosphorus 2.6 mg/dL (2.3-4.7)
[2021-04-09 09:17] LABS: Anion Gap 10 mmol/L (10-20); BUN (Urea Nitrogen) 6 mg/dL (8.4-25.7); Calc. Creatinine Clearance 74 mL/min (70-130); Calcium 9.3 mg/dL (7.8-10.44); Carbon Dioxide 27 mmol/L (22-29); Chloride 105 mmol/L (98-107); Glucose 104 mg/dL (70-105); Magnesium 2.2 mg/dL (1.6-2.6); Potassium 3.6 mmol/L (3.5-5.1); Sodium 138 mmol/L (136-145)
[2021-04-09] MEDS: Lisinopril 10 MG TAB PO SCH (10:04)
[2021-04-09] MEDS: Loratadine 10 MG TAB PO SCH (10:04)
[2021-04-09] MEDS: Carvedilol 3.125 MG TAB PO SCH ×2 (10:04→21:30)
[2021-04-09] MEDS: Clopidogrel Bisulfate 75 MG TAB PO SCH (10:05)
[2021-04-09] MEDS: Ezetimibe 10 MG TAB PO SCH (10:05)
[2021-04-09] MEDS: levETIRAcetam 500 MG TAB PO SCH ×2 (10:05→21:29)
[2021-04-09] MEDS: Rivaroxaban 2.5 MG TAB PO SCH ×2 (11:28→21:31)
[2021-04-09] MEDS ORDERED: Pravastatin Sodium 20 MG TAB PO SCH (21:00)
[2021-04-09] MEDS ORDERED: Simvastatin 10 MG TAB PO SCH (21:00)
[2021-04-10 06:29] LABS: #Eosinphils 0.2 thou/uL (0.0-0.7); #Lymphocytes 1.3 thou/uL (1.20-3.40); #Monocytes 0.5 thou/uL (0.11-0.59); #Neutrophils 3.5 thou/uL (1.40-6.50); %Basophils 0.3 % (0.0-1.0); %Eosinophils 3.2 % (0.0-10.0); %Lymphocytes 24.3 % (21.0-51.0); %Monocytes 9.6 % (0.0-10.0); %Neutrophils 62.6 % (42.0-75.0); Hemoglobin 14.6 g/dL (14.0-18.0); Mean Corpuscular Hemoglobin 33.4 pg (27.0-31.0); Mean Corpuscular Volume 98.3 fL (78.0-98.0); Mean Platelet Volume 7.8 fL (7.4-10.4); Platelet Count 170 thou/uL (130-400); RBC Distribution Width 11.8 % (11.5-14.5); Red Blood Cell (RBC) Count 4.37 mill/uL (4.70-6.10); White Blood Cell (WBC) Count 5.5 thou/uL (4.8-10.8)
[2021-04-10 06:50] LABS: Anion Gap 11 mmol/L (10-20); BUN (Urea Nitrogen) 10 mg/dL (8.4-25.7); Calc. Creatinine Clearance 74 mL/min (70-130); Carbon Dioxide 24 mmol/L (22-29); Chloride 105 mmol/L (98-107); Glucose 97 mg/dL (70-105); Potassium 3.7 mmol/L (3.5-5.1); Sodium 136 mmol/L (136-145)
[2021-04-10] MEDS ORDERED: Magnesium 2 GM/50 ML 2 GM in Premix Bag 1 BAG IVPB SCH (08:00)
[2021-04-10] MEDS: Rivaroxaban 2.5 MG TAB PO SCH (08:34)
[2021-04-10] MEDS: levETIRAcetam 500 MG TAB PO SCH (08:34)
[2021-04-10] MEDS: Lisinopril 10 MG TAB PO SCH (08:35)
[2021-04-10] MEDS: Ezetimibe 10 MG TAB PO SCH (08:35)
[2021-04-10] MEDS: Clopidogrel Bisulfate 75 MG TAB PO SCH (08:35)
[2021-04-10] MEDS: Carvedilol 3.125 MG TAB PO SCH (08:35)
[2021-04-10] MEDS: Loratadine 10 MG TAB PO SCH (08:35)
[2021-04-10] MEDS ORDERED: Aspirin 81 mg Enteric Coated Tablet PO SCH ×2 (09:00→15:34)
[2021-04-10 15:56] VITALS: BP 144/67; TEMP 97.8
[2021-04-12] MEDS ORDERED: FLU VACC QS2021-22(6MOS UP)/PF 60 MCG/0.5 ML SYRINGE IM ONE (09:00)
== END 2021-04-10 16:20 | disposition home or self-care (01) ==
LOC: NEURO 23:39
PROVIDERS: ADMIT Internal Medicine; ATTEND Internal Medicine
DX: G45.9 Transient cerebral ischemic attack, unspecified (principal); I25.10 Atherosclerotic heart disease of native coronary artery without angina pectoris; E87.6 Hypokalemia; I49.3 Ventricular premature depolarization; I10 Essential (primary) hypertension; G40.909 Epilepsy, unspecified, not intractable, without status epilepticus; E78.5 Hyperlipidemia, unspecified; I69.351 Hemiplegia and hemiparesis following cerebral infarction affecting right dominant side; I16.1 Hypertensive emergency; I08.3 Combined rheumatic disorders of mitral, aortic and tricuspid valves; Z87.891 Personal history of nicotine dependence; Z79.01 Long term (current) use of anticoagulants; Z79.02 Long term (current) use of antithrombotics/antiplatelets; Z79.899 Other long term (current) drug therapy; Z88.1 Allergy status to other antibiotic agents; Z88.8 Allergy status to other drugs, medicaments and biological substances; Z95.1 Presence of aortocoronary bypass graft
CPT/HCPCS: 36415; 70551; 80048; 83735; 84100; 85025; 93306; 95712; 95819; 95957; 96365; G0378; J3475

== ENCOUNTER 2021-05-15 07:55 | Observation (INO) | payer BC ==
[2021-05-15] MEDS ORDERED: Senokot S 8.6-50 MG TAB PO PRN (10:50)
[2021-05-15] MEDS ORDERED: HYDROcodone/Acetaminophen 5/325 mg Tablet PO PRN (10:50)
[2021-05-15 14:45] VITALS: BMI 26.2
[2021-05-15] MEDS: Famotidine/PF 20 mg/2ml Vial SLOW IVP SCH (20:11)
[2021-05-15] MEDS: levETIRAcetam 500 MG TAB PO SCH (20:11)
[2021-05-15] MEDS: Carvedilol 3.125 MG TAB PO SCH (20:11)
[2021-05-15] MEDS ORDERED: Atorvastatin Calcium 40 MG TAB PO SCH (21:00)
[2021-05-15 22:47] LABS: SARS-CoV-2 PCR by NAA Not Detected (NotDetected)
[2021-05-16 05:45] LABS: #Eosinphils 0.2 thou/uL (0.0-0.7); #Lymphocytes 1.5 thou/uL (1.20-3.40); #Monocytes 0.7 thou/uL (0.11-0.59); %Lymphocytes 20.4 % (21.0-51.0); %Monocytes 9.9 % (0.0-10.0); %Neutrophils 66.7 % (42.0-75.0); Hemoglobin 14.5 g/dL (14.0-18.0); Mean Corpuscular HGB CONC 33.3 g/dL (32.0-36.0); Mean Corpuscular Hemoglobin 33.1 pg (27.0-31.0); Mean Corpuscular Volume 99.6 fL (78.0-98.0); Mean Platelet Volume 7.4 fL (7.4-10.4); Platelet Count 185 thou/uL (130-400); RBC Distribution Width 11.7 % (11.5-14.5); Red Blood Cell (RBC) Count 4.36 mill/uL (4.70-6.10); White Blood Cell (WBC) Count 7.5 thou/uL (4.8-10.8)
[2021-05-16 06:10] LABS: Anion Gap 15 mmol/L (10-20); BUN (Urea Nitrogen) 7 mg/dL (8.4-25.7); Calc. Creatinine Clearance 85 mL/min (70-130); Calcium 8.6 mg/dL (7.8-10.44); Carbon Dioxide 24 mmol/L (22-29); Chloride 101 mmol/L (98-107); Glucose 88 mg/dL (70-105); Potassium 3.5 mmol/L (3.5-5.1); Sodium 136 mmol/L (136-145)
[2021-05-16 07:54] VITALS: BP 157/87; TEMP 97.5
[2021-05-16] MEDS: levETIRAcetam 500 MG TAB PO SCH (08:46)
[2021-05-16] MEDS: Famotidine/PF 20 mg/2ml Vial SLOW IVP SCH (08:47)
[2021-05-16] MEDS: Carvedilol 3.125 MG TAB PO SCH (08:50)
[2021-05-16] MEDS ORDERED: Aspirin 81 mg Enteric Coated Tablet PO SCH (09:00)
[2021-05-16] MEDS ORDERED: Potassium Chloride 10 MEQ TAB PO SCH (09:00)
[2021-05-16] MEDS ORDERED: Clopidogrel Bisulfate 75 MG TAB PO SCH (09:00)
== END 2021-05-16 11:36 | disposition home or self-care (01) ==
LOC: NEURO 09:22
PROVIDERS: ADMIT Hospitalist; ATTEND Hospitalist
DX: G45.9 Transient cerebral ischemic attack, unspecified (principal); I25.10 Atherosclerotic heart disease of native coronary artery without angina pectoris; E78.5 Hyperlipidemia, unspecified; I11.9 Hypertensive heart disease without heart failure; Z86.73 Personal history of transient ischemic attack (TIA), and cerebral infarction without residual deficits; Z87.891 Personal history of nicotine dependence; Z79.01 Long term (current) use of anticoagulants; Z79.02 Long term (current) use of antithrombotics/antiplatelets; Z79.82 Long term (current) use of aspirin; Z79.899 Other long term (current) drug therapy; Z88.1 Allergy status to other antibiotic agents; Z88.8 Allergy status to other drugs, medicaments and biological substances; Z95.1 Presence of aortocoronary bypass graft; Z20.822 Contact with and (suspected) exposure to COVID-19
CPT/HCPCS: 36415; 70551; 80048; 85025; 93005; 93010; 96375; 96376; G0378; S0028; U0003; U0005

== ENCOUNTER 2021-10-20 13:39 | Outpatient (CLI) | payer BC | END 2021-10-20 13:40 | disposition home or self-care (01) | LOC: SCSCT 13:39 | PROVIDERS: ATTEND Psychiatry & Neurology Neurology | DX: I66.02 Occlusion and stenosis of left middle cerebral artery (principal); Z86.73 Personal history of transient ischemic attack (TIA), and cerebral infarction without residual deficits | CPT/HCPCS: 70450 ==

== ENCOUNTER 2022-01-25 00:09 | Observation (INO) | payer BC ==
[2022-01-25 03:01] VITALS: BMI 28.7
[2022-01-25] MEDS ORDERED: Acetaminophen 325 MG Suppository PR PRN (05:03)
[2022-01-25] MEDS ORDERED: hydrALAZINE 20 MG/ML VIAL SLOW IVP PRN (05:03)
[2022-01-25] MEDS ORDERED: Acetaminophen 325 MG TAB PO PRN (05:03)
[2022-01-25] MEDS ORDERED: Aspirin Chewable 81 MG TAB PO SCH (05:15)
[2022-01-25] MEDS ORDERED: Aspirin 81 mg Enteric Coated Tablet PO SCH (09:00)
[2022-01-25] MEDS ORDERED: Cyclobenzaprine 10 MG TAB PO PRN (09:16)
[2022-01-25 12:11] VITALS: BP 118/78; TEMP 97.5
[2022-01-25] MEDS ORDERED: Atorvastatin Calcium 40 MG TAB PO SCH (21:00)
[2022-01-25] MEDS ORDERED: levETIRAcetam 500 MG TAB PO SCH (21:00)
[2022-01-26] MEDS ORDERED: Aspirin 81 mg Enteric Coated Tablet PO SCH (09:00)
[2022-01-26] MEDS ORDERED: Clopidogrel Bisulfate 75 MG TAB PO SCH (09:00)
== END 2022-01-25 15:00 | disposition home or self-care (01) ==
LOC: NEURO 01:54
PROVIDERS: ADMIT Internal Medicine; ATTEND Internal Medicine
DX: R53.1 Weakness (principal); R29.810 Facial weakness; I10 Essential (primary) hypertension; I25.10 Atherosclerotic heart disease of native coronary artery without angina pectoris; E78.5 Hyperlipidemia, unspecified; I69.351 Hemiplegia and hemiparesis following cerebral infarction affecting right dominant side; I69.322 Dysarthria following cerebral infarction; I69.320 Aphasia following cerebral infarction; G40.909 Epilepsy, unspecified, not intractable, without status epilepticus; I08.8 Other rheumatic multiple valve diseases; Z79.01 Long term (current) use of anticoagulants; Z79.02 Long term (current) use of antithrombotics/antiplatelets; Z79.82 Long term (current) use of aspirin; Z79.899 Other long term (current) drug therapy; Z88.1 Allergy status to other antibiotic agents; Z88.8 Allergy status to other drugs, medicaments and biological substances; Z95.1 Presence of aortocoronary bypass graft; Z20.822 Contact with and (suspected) exposure to COVID-19
CPT/HCPCS: 70551; 93306; 95712; 95819; 95957; G0378; U0003; U0005

== ENCOUNTER 2022-06-14 23:01 | Emergency (ER) | payer BC, SELFPAY ==
[~2022-06-14 23:01] MED LIST: Iopamidol-370 76% 500 ML 1 ML ONE
[2022-06-15 00:23] LABS: Bilirubin Negative (Negative); Blood, Urine Negative (Negative); Clarity Clear (Clear); Glucose, Urine (Dipstick) Normal (Negative); Ketone, Urine Negative (Negative); Leukocyte Negative Leu/uL (Negative); Nitrite Negative (Negative); Protein, Urine (Dipstick) Negative (Neg-Trace); Specific Gravity, Urine 1.005 (1.002-1.036); Urobilinogen Normal mg/dL (Less than 2)
[2022-06-15 00:31] LABS: Amphetamine Not Detected (NotDetected); Barbiturates Screen Not Detected (NotDetected); Benzodiazepine Screen Not Detected (NotDetected); Cocaine Metabolite Screen Not Detected (NotDetected); Methadone Not Detected (NotDetected); Methamphetamine Not Detected (NotDetected); Opiate Screen Not Detected (NotDetected); Oxycodone Screen Not Detected (NotDetected); Phencyclidine (PCP) Not Detected (NotDetected); THC/Cannabinoid Screen Not Detected (NotDetected); Tricyclic Screen Not Detected (NotDetected)
[2022-06-15 00:35] LABS: #Eosinphils 0.1 thou/uL (0.0-0.7); #Lymphocytes 1.1 thou/uL (1.20-3.40); #Monocytes 0.3 thou/uL (0.11-0.59); #Neutrophils 6.9 thou/uL (1.40-6.50); %Basophils 0.1 % (0.0-1.0); %Eosinophils 0.9 % (0.0-10.0); Hemoglobin 16.1 g/dL (14.0-18.0); Mean Corpuscular HGB CONC 34.5 g/dL (32.0-36.0); Mean Corpuscular Hemoglobin 33.3 pg (27.0-31.0); Mean Corpuscular Volume 96.6 fl (78.0-98.0); Mean Platelet Volume 7.7 fL (7.4-10.4); Platelet Count 173 10x3/uL (130-400); RBC Distribution Width 12.4 % (11.5-14.5); Red Blood Cell (RBC) Count 4.82 mill/uL (4.70-6.10); White Blood Cell (WBC) Count 8.4 10x3/uL (4.8-10.8)
[2022-06-15 00:53] LABS: Actual Bicarbonate (HCO3v) 25 mEq/L (22-28); Calcium, Ionized (venous) 1.12 mmol/L (1.16-1.32); Chloride (VBG) 97 mmol/L (98-106); Hemoglobin (Hb) 16.6 g/dL (13.1-17.2); Potassium (VBG) 3.97 mmol/L (3.70-5.30); Sodium 132.6 mmol/L (133-146); pH (venous) 7.28 (7.32-7.43)
[2022-06-15 00:59] LABS: Acetaminophen Less than 10.0 mcg/mL (10.0-30.0); Alcohol 138 mg/dL (Less than 10); Salicylate Less than 8.0 mg/dL (15.0-30.0)
[2022-06-15 01:00] LABS: ALT (SGPT) 69 U/L (8-55); AST (SGOT) 46 U/L (5-34); Albumin 4.2 g/dL (3.5-5.0); Alkaline Phosphatase 181 U/L (40-110); Anion Gap 14 mmol/L (10-20); BUN (Urea Nitrogen) 10 mg/dL (8.4-25.7); Bilirubin, Total 0.5 mg/dL (0.2-1.2); Calc. Creatinine Clearance 0 mL/min (70-130); Carbon Dioxide 21 mmol/L (22-29); Chloride 99 mmol/L (98-107); Estimated GFR 72; Globulin 3.1 g/dL (2.4-3.5); Glucose 115 mg/dL (70-105); Potassium 3.9 mmol/L (3.5-5.1); Protein, Total 7.3 g/dL (6.0-8.3); Sodium 130 mmol/L (136-145)
== END 2022-06-15 01:50 | disposition home or self-care (01) ==
LOC: ERS 23:01
DX: R40.4 Transient alteration of awareness (principal); I25.10 Atherosclerotic heart disease of native coronary artery without angina pectoris; E78.5 Hyperlipidemia, unspecified; I10 Essential (primary) hypertension; F17.210 Nicotine dependence, cigarettes, uncomplicated
CPT/HCPCS: 36415; 36416; 70450; 70496; 70498; 71045; 80053; 80306; 80307; 81003; 82805; 83605; 84484; 85025; 93005; Q9967

== ENCOUNTER 2022-06-30 00:24 | Observation (INO) | payer SELFPAY ==
[2022-06-30 13:49] VITALS: BMI 25.3
[2022-06-30] MEDS ORDERED: Acetaminophen 325 MG TAB PO PRN (16:47)
[2022-06-30] MEDS ORDERED: Nitroglycerin 0.4 MG TAB (25 Tab Bottle) SL PRN (16:59)
[2022-06-30] MEDS: Carvedilol 3.125 MG TAB PO SCH (20:22)
[2022-06-30] MEDS: Lisinopril 20 MG TAB PO SCH (20:22)
[2022-06-30] MEDS: Potassium Chloride 10 MEQ TAB PO SCH (20:22)
[2022-06-30] MEDS: levETIRAcetam 500 MG TAB PO SCH (20:22)
[2022-06-30] MEDS: Rivaroxaban 2.5 MG TAB PO SCH (20:41)
[2022-06-30] MEDS ORDERED: Cyclobenzaprine 10 MG TAB PO SCH (21:00)
[2022-06-30] MEDS ORDERED: Atorvastatin Calcium 40 MG TAB PO SCH (21:00)
[2022-07-01] MEDS ORDERED: Loratadine 10 MG TAB PO SCH (09:00)
[2022-07-01] MEDS ORDERED: Aspirin 81 mg Enteric Coated Tablet PO SCH (09:00)
[2022-07-01] MEDS ORDERED: Clopidogrel Bisulfate 75 MG TAB PO SCH (09:00)
[2022-07-01] MEDS: levETIRAcetam 500 MG TAB PO SCH (09:34)
[2022-07-01] MEDS: Potassium Chloride 10 MEQ TAB PO SCH (09:35)
[2022-07-01] MEDS: Lisinopril 20 MG TAB PO SCH (09:38)
[2022-07-01] MEDS: Carvedilol 3.125 MG TAB PO SCH (12:48)
[2022-07-01] MEDS: Rivaroxaban 2.5 MG TAB PO SCH (12:49)
[2022-07-01 16:58] VITALS: BP 133/91; TEMP 97.2
== END 2022-07-01 19:00 | disposition home or self-care (01) ==
LOC: ERS 00:24 → SDC 00:24 → ER/OP 12:57 → 2SW 13:41
PROVIDERS: ADMIT Internal Medicine; ATTEND Internal Medicine
DX: R07.2 Precordial pain (principal); I10 Essential (primary) hypertension; I25.10 Atherosclerotic heart disease of native coronary artery without angina pectoris; I25.2 Old myocardial infarction; I08.3 Combined rheumatic disorders of mitral, aortic and tricuspid valves; K76.0 Fatty (change of) liver, not elsewhere classified; E78.5 Hyperlipidemia, unspecified; G40.909 Epilepsy, unspecified, not intractable, without status epilepticus; I25.5 Ischemic cardiomyopathy; Z86.73 Personal history of transient ischemic attack (TIA), and cerebral infarction without residual deficits; Z87.891 Personal history of nicotine dependence; Z79.01 Long term (current) use of anticoagulants; Z79.02 Long term (current) use of antithrombotics/antiplatelets; Z79.82 Long term (current) use of aspirin; Z79.899 Other long term (current) drug therapy; Z88.1 Allergy status to other antibiotic agents; Z88.8 Allergy status to other drugs, medicaments and biological substances; Z95.1 Presence of aortocoronary bypass graft
CPT/HCPCS: 74176; 93306; G0378

== ENCOUNTER 2022-11-30 22:54 | Observation (INO) | payer BC, MEDICARE ==
[2022-11-30 23:47] LABS: #Eosinphils 0.1 thou/uL (0.0-0.7); #Monocytes 0.7 thou/uL (0.11-0.59); #Neutrophils 8.5 thou/uL (1.40-6.50); %Basophils 0.4 % (0.0-1.0); %Lymphocytes 12.4 % (21.0-51.0); %Monocytes 6.3 % (0.0-10.0); %Neutrophils 79.6 % (42.0-75.0); Hematocrit 41.7 % (42.0-52.0); Hemoglobin 14.1 g/dL (14.0-18.0); Mean Corpuscular HGB CONC 33.8 g/dL (32.0-36.0); Mean Corpuscular Hemoglobin 33.6 pg (27.0-31.0); Mean Corpuscular Volume 99.3 fl (78.0-98.0); Platelet Count 192 10x3/uL (130-400); RBC Distribution Width 12.2 % (11.5-14.5); White Blood Cell (WBC) Count 10.7 10x3/uL (4.8-10.8)
[2022-12-01 00:07] LABS: ALT (SGPT) 31 U/L (8-55); AST (SGOT) 25 U/L (5-34); Albumin 3.8 g/dL (3.5-5.0); Alkaline Phosphatase 90 U/L (40-110); Anion Gap 14 mmol/L (10-20); BUN (Urea Nitrogen) 13 mg/dL (8.4-25.7); Bilirubin, Total 0.3 mg/dL (0.2-1.2); Calc. Creatinine Clearance 0 mL/min (70-130); Calcium 8.4 mg/dL (7.8-10.44); Carbon Dioxide 20 mmol/L (22-29); Chloride 107 mmol/L (98-107); Estimated GFR 59; Globulin 2.5 g/dL (2.4-3.5); Glucose 96 mg/dL (70-105); Potassium 3.6 mmol/L (3.5-5.1); Protein, Total 6.3 g/dL (6.0-8.3); Sodium 137 mmol/L (136-145)
[2022-12-01 00:11] LABS: Troponin I Less than 0.010 ng/mL (< 0.028)
[2022-12-01] MEDS ORDERED: Acetaminophen 325 MG TAB PO PRN (01:53)
[2022-12-01] MEDS ORDERED: Acetaminophen 650 MG Suppository PR PRN (01:53)
[2022-12-01] MEDS ORDERED: Nitroglycerin 0.4 MG TAB (25 Tab Bottle) SL PRN (01:53)
[2022-12-01 03:01] LABS: Troponin I Less than 0.010 ng/mL (< 0.028)
[2022-12-01] MEDS: Sodium Chloride 0.9% 1,000 ML IV SCH ×2 (03:09→12:16)
[2022-12-01 03:28] VITALS: BMI 25.3
[2022-12-01 05:45] LABS: #Eosinphils 0.1 thou/uL (0.0-0.7); #Monocytes 0.6 thou/uL (0.11-0.59); #Neutrophils 3.7 thou/uL (1.40-6.50); %Basophils 0.7 % (0.0-1.0); %Lymphocytes 25.9 % (21.0-51.0); %Monocytes 9.5 % (0.0-10.0); %Neutrophils 61.7 % (42.0-75.0); Hematocrit 39.5 % (42.0-52.0); Hemoglobin 13.3 g/dL (14.0-18.0); Mean Corpuscular HGB CONC 33.7 g/dL (32.0-36.0); Mean Corpuscular Hemoglobin 33.2 pg (27.0-31.0); Mean Corpuscular Volume 98.5 fl (78.0-98.0); Mean Platelet Volume 9.9 fL (7.4-10.4); Platelet Count 190 10x3/uL (130-400); RBC Distribution Width 12.2 % (11.5-14.5); Red Blood Cell (RBC) Count 4.01 mill/uL (4.70-6.10)
[2022-12-01 06:13] LABS: Anion Gap 12 mmol/L (10-20); BUN (Urea Nitrogen) 13 mg/dL (8.4-25.7); Calc. Creatinine Clearance 69 mL/min (70-130); Calcium 8.6 mg/dL (7.8-10.44); Carbon Dioxide 22 mmol/L (22-29); Chloride 109 mmol/L (98-107); Estimated GFR 68; Glucose 90 mg/dL (70-105); Potassium 4.1 mmol/L (3.5-5.1); Sodium 139 mmol/L (136-145)
[2022-12-01 06:17] LABS: Troponin I Less than 0.010 ng/mL (< 0.028)
[2022-12-01] MEDS ORDERED: Aspirin Chewable 81 MG TAB PO SCH (09:00)
[2022-12-01 11:55] VITALS: BP 122/77; TEMP 97.6
[2022-12-01] MEDS ORDERED: Carvedilol 3.125 MG TAB PO SCH (17:00)
[2022-12-01] MEDS ORDERED: Rivaroxaban 2.5 MG TAB PO SCH ×2 (17:00→21:00)
[2022-12-01] MEDS ORDERED: Lisinopril 10 MG TAB PO SCH (21:00)
[2022-12-01] MEDS ORDERED: Docusate 100 MG CAP PO SCH (21:00)
[2022-12-01] MEDS ORDERED: Cyclobenzaprine 10 MG TAB PO SCH (21:00)
[2022-12-01] MEDS ORDERED: levETIRAcetam 500 MG TAB PO SCH (21:00)
[2022-12-01] MEDS ORDERED: Atorvastatin Calcium 40 MG TAB PO SCH (21:00)
[2022-12-02] MEDS ORDERED: Potassium Chloride 20 MEQ TAB PO SCH (09:00)
[2022-12-02] MEDS ORDERED: Aspirin 81 mg Enteric Coated Tablet PO SCH (09:00)
[2022-12-02] MEDS ORDERED: Clopidogrel Bisulfate 75 MG TAB PO SCH (09:00)
[2022-12-02] MEDS ORDERED: Loratadine 10 MG TAB PO SCH (09:00)
[2022-12-02] MEDS ORDERED: Cetirizine HCl 10 MG TAB PO SCH (09:00)
[2022-12-02] MEDS ORDERED: Ezetimibe 10 MG TAB PO SCH (09:00)
== END 2022-12-01 15:14 | disposition home or self-care (01) ==
LOC: ERS 22:54 → 2SW 12-01 01:43
PROVIDERS: ADMIT Student in an Organized Health Care Education/Training Program; ATTEND Internal Medicine
DX: R07.9 Chest pain, unspecified (principal)
CPT/HCPCS: 36415; 71045; 80048; 80053; 84484; 85025; 93005; G0378; J7050

== ENCOUNTER 2023-10-28 22:33 | Emergency (ER) | payer MEDICARE ==
[2023-10-29 01:14] LABS: #Basophils Less than 0.03 10x3/uL (0.0-0.2); %Basophils 0.3 % (0.0-1.0); %Eosinophils 2.1 % (0.0-10.0); %Lymphocytes 27.8 % (21.0-51.0); %Monocytes 13.4 % (0.0-10.0); %Neutrophils 56.2 % (42.0-75.0); Hematocrit 43.9 % (42.0-52.0); Hemoglobin 15.1 g/dL (14.0-18.0); Mean Corpuscular HGB CONC 34.4 g/dL (32.0-36.0); Mean Corpuscular Hemoglobin 33.1 pg (27.0-31.0); Mean Corpuscular Volume 96.3 fL (78.0-98.0); Mean Platelet Volume 10.4 fL (7.4-10.4); Platelet Count 178 10x3/uL (130-400); RBC Distribution Width 11.9 % (11.5-14.5); Red Blood Cell (RBC) Count 4.56 mill/uL (4.70-6.10)
[2023-10-29 01:37] LABS: INR-International Normal Ratio 1.1; PTT 29.8 sec (22.9-36.1); Prothrombin Time 14.4 sec (12.0-14.7)
[2023-10-29 02:15] LABS: ALT (SGPT) 26 U/L (8-55); AST (SGOT) 26 U/L (5-34); Albumin 3.9 g/dL (3.5-5.0); Alkaline Phosphatase 98 U/L (40-110); Anion Gap 15 mmol/L (10-20); BUN (Urea Nitrogen) 17 mg/dL (8.4-25.7); Bilirubin, Total 0.6 mg/dL (0.2-1.2); Calc. Creatinine Clearance 0 mL/min (70-130); Calcium 9.3 mg/dL (7.8-10.44); Carbon Dioxide 22 mmol/L (22-29); Chloride 105 mmol/L (98-107); Estimated GFR 56; Globulin 3.1 g/dL (2.4-3.5); Glucose 83 mg/dL (70-105); Potassium 3.8 mmol/L (3.5-5.1); Sodium 138 mmol/L (136-145)
[2023-10-29] MEDS ORDERED: Fluorescein Opthalmic Strip ONE (03:38)
[2023-10-29] MEDS ORDERED: Proparacaine 0.5% Opth 15 ML BOT ONE (03:39)
== END 2023-10-29 04:55 | disposition home or self-care (01) ==
LOC: ERS 22:33
DX: S05.11XA Contusion of eyeball and orbital tissues, right eye, initial encounter (principal); H10.9 Unspecified conjunctivitis; I25.10 Atherosclerotic heart disease of native coronary artery without angina pectoris; I25.2 Old myocardial infarction; I10 Essential (primary) hypertension; E78.5 Hyperlipidemia, unspecified; X58.XXXA Exposure to other specified factors, initial encounter; Z87.891 Personal history of nicotine dependence; Z86.73 Personal history of transient ischemic attack (TIA), and cerebral infarction without residual deficits; Z79.82 Long term (current) use of aspirin; Z79.899 Other long term (current) drug therapy
CPT/HCPCS: 36415; 80053; 85025; 85610; 85730; 99283

== ENCOUNTER 2023-12-28 23:08 | Emergency (ER) | payer MEDICARE ==
[2023-12-28 23:48] LABS: #Basophils 0.04 10x3/uL (0.0-0.2); %Basophils 0.8 % (0.0-1.0); %Eosinophils 1.9 % (0.0-10.0); %Lymphocytes 29.1 % (21.0-51.0); %Monocytes 10.3 % (0.0-10.0); %Neutrophils 57.7 % (42.0-75.0); Hematocrit 46.1 % (42.0-52.0); Hemoglobin 15.9 g/dL (14.0-18.0); Mean Corpuscular HGB CONC 34.5 g/dL (32.0-36.0); Mean Corpuscular Hemoglobin 33.6 pg (27.0-31.0); Mean Corpuscular Volume 97.5 fL (78.0-98.0); Mean Platelet Volume 9.2 fL (7.4-10.4); Platelet Count 191 10x3/uL (130-400); RBC Distribution Width 11.7 % (11.5-14.5); Red Blood Cell (RBC) Count 4.73 mill/uL (4.70-6.10)
[2023-12-29 00:13] LABS: ALT (SGPT) 23 U/L (8-55); AST (SGOT) 23 U/L (5-34); Albumin 4.2 g/dL (3.5-5.0); Alkaline Phosphatase 90 U/L (40-110); Anion Gap 14 mmol/L (10-20); BUN (Urea Nitrogen) 10 mg/dL (8.4-25.7); Bilirubin, Total 0.5 mg/dL (0.2-1.2); Calc. Creatinine Clearance 0 mL/min (70-130); Calcium 9.4 mg/dL (7.8-10.44); Carbon Dioxide 24 mmol/L (22-29); Chloride 104 mmol/L (98-107); Estimated GFR 78; Globulin 3.3 g/dL (2.4-3.5); Glucose 95 mg/dL (70-105); Potassium 4.1 mmol/L (3.5-5.1); Protein, Total 7.5 g/dL (6.0-8.3); Sodium 138 mmol/L (136-145)
[2023-12-29 00:14] LABS: Acetaminophen Less than 10 mcg/mL (Less than 10); Alcohol 148.9 mg/dL (Less than 10); Salicylate Less than 8.0 mg/dL (Less than 8.0)
[2023-12-29 03:43] LABS: Bacteria/HPF None Seen HPF (None Seen); Bilirubin Negative (Negative); Blood, Urine Negative (Negative); CAUTI Indications for Culture Alt mental st,lethar; Clarity Clear (Clear); Glucose, Urine (Dipstick) 300 mg/dL (Negative); Ketone, Urine Negative (Negative); Leukocyte Negative Leu/uL (Negative); Nitrite Negative (Negative); Protein, Urine (Dipstick) Negative (Neg-Trace); RBC/HPF None Seen HPF (0-3); Specific Gravity, Urine 1.003 (1.002-1.036); Squamous Epithelial None Seen HPF (0-3); Urobilinogen Normal mg/dL (Less than 2); WBC/HPF 0-3 HPF (0-3)
[2023-12-29 03:45] LABS: Urine Culture Reflex No No
[2023-12-29 03:51] LABS: Amphetamine Not Detected (NotDetected); Barbiturates Screen Not Detected (NotDetected); Benzodiazepine Screen Not Detected (NotDetected); Cocaine Metabolite Screen Not Detected (NotDetected); Methadone Not Detected (NotDetected); Methamphetamine Not Detected (NotDetected); Opiate Screen Not Detected (NotDetected); Oxycodone Screen Not Detected (NotDetected); Phencyclidine (PCP) Not Detected (NotDetected); THC/Cannabinoid Screen Not Detected (NotDetected); Tricyclic Screen Not Detected (NotDetected)
== END 2023-12-29 06:58 ==
LOC: EEVIPCON 23:08 → ERS 23:08
DX: F32.A Depression, unspecified (principal); R45.851 Suicidal ideations; I10 Essential (primary) hypertension; K21.9 Gastro-esophageal reflux disease without esophagitis; Z79.899 Other long term (current) drug therapy
CPT/HCPCS: 36415; 80053; 80306; 80307; 81001; 85025; 93005; 99285

== ENCOUNTER 2024-11-04 14:08 | Inpatient (IN) | payer MEDICARE ==
[2024-11-04 15:02] VITALS: BMI 26.6
[2024-11-04] MEDS ORDERED: Ketorolac Tromethamine 30 MG (1 mL) VIAL IVP PRN (16:02)
[2024-11-04] MEDS ORDERED: Ondansetron PF 4 MG/2 ML Vial IVP PRN (16:02)
[2024-11-04] MEDS ORDERED: Senokot S 8.6-50 MG TAB PO PRN (16:02)
[2024-11-04] MEDS ORDERED: Acetaminophen 325 MG TAB PO PRN (16:02)
[2024-11-04] MEDS ORDERED: hydrALAZINE 20 MG/ML VIAL SLOW IVP PRN (16:02)
[2024-11-04] MEDS ORDERED: cloNIDine 0.1 MG TAB PO PRN (17:10)
[2024-11-04] MEDS: Carvedilol 3.125 MG TAB PO SCH (20:31)
[2024-11-04] MEDS: Famotidine 20 MG TAB PO SCH (20:31)
[2024-11-04] MEDS: levETIRAcetam 500 MG TAB PO SCH (20:32)
[2024-11-04] MEDS: Cyclobenzaprine 10 MG TAB PO SCH (20:32)
[2024-11-04] MEDS: Ezetimibe 10 MG TAB PO SCH (20:32)
[2024-11-04] MEDS: Sacubitril 49 MG/Valsartan 51 MG TABLET PO SCH (20:32)
[2024-11-05 04:21] LABS: Anion Gap 12 mmol/L (10-20); BUN (Urea Nitrogen) 20 mg/dL (8.4-25.7); Calc. Creatinine Clearance 61 mL/min (70-130); Calcium 8.4 mg/dL (7.8-10.44); Carbon Dioxide 26 mmol/L (22-29); Cardiac Risk 3.1 (Less than 4.5); Chloride 106 mmol/L (98-107); Cholesterol 116 mg/dl (< 200 Desired); Glucose 102 mg/dL (70-105); HDL Cholesterol 38 mg/dL (>60 Neg Risk); LDL Cholesterol, Calculated 50 mg/dL; Potassium 3.9 mmol/L (3.5-5.1); Sodium 140 mmol/L (136-145); Triglycerides 139 mg/dL (Less than 150)
[2024-11-05] MEDS: Aspirin 81 mg Enteric Coated Tablet PO SCH (08:55)
[2024-11-05] MEDS: Sertraline 100 MG TAB PO SCH (08:58)
[2024-11-06 04:07] LABS: Anion Gap 15 mmol/L (10-20); BUN (Urea Nitrogen) 17 mg/dL (8.4-25.7); Calc. Creatinine Clearance 68 mL/min (70-130); Calcium 8.4 mg/dL (7.8-10.44); Carbon Dioxide 24 mmol/L (22-29); Chloride 104 mmol/L (98-107); Glucose 107 mg/dL (70-105); Potassium 3.5 mmol/L (3.5-5.1); Sodium 139 mmol/L (136-145)
[2024-11-06 16:19] VITALS: BP 105/66; TEMP 97.9
[2024-11-06] MEDS: Apixaban 5 MG TAB PO SCH (18:13)
[2024-11-07] MEDS ORDERED: Apixaban 5 MG TAB PO SCH (09:00)
== END 2024-11-06 19:14 | disposition home or self-care (01) | DRG 69 ==
LOC: 2SE 14:08 → OBSVTOIN 11-05 17:53
PROVIDERS: ADMIT Hospitalist; ATTEND Student in an Organized Health Care Education/Training Program
DX: G45.9 Transient cerebral ischemic attack, unspecified (principal); I69.951 Hemiplegia and hemiparesis following unspecified cerebrovascular disease affecting right dominant side; I25.10 Atherosclerotic heart disease of native coronary artery without angina pectoris; I25.2 Old myocardial infarction; E78.5 Hyperlipidemia, unspecified; I48.0 Paroxysmal atrial fibrillation; M48.02 Spinal stenosis, cervical region; I11.0 Hypertensive heart disease with heart failure; I50.9 Heart failure, unspecified; G40.909 Epilepsy, unspecified, not intractable, without status epilepticus; Z87.891 Personal history of nicotine dependence; Z95.5 Presence of coronary angioplasty implant and graft; Z79.01 Long term (current) use of anticoagulants; Z88.8 Allergy status to other drugs, medicaments and biological substances
CPT/HCPCS: 36415; 70551; 72141; 80048; 80061